=== PATIENT | male | born 1950 | race Caucasian/White ===

== ENCOUNTER 2016-08-06 10:33 | Emergency (ER) | payer MEDICARE, OTHER, BC ==
[2016-08-06 12:00] LABS: AMPHETAMINES LEVEL URINE NEGATIVE (NEGATIVE); BENZODIAZEPINES URINE NEGATIVE (NEGATIVE); COCAINE METABOLITE URINE NEGATIVE (NEGATIVE); CONTROL LINE INT CTR LINE PRESENT; METHADONE URINE NEGATIVE (NEGATIVE); OPIATES URINE NEGATIVE (NEGATIVE); TRICYCLIC ANTIDEPRESS URINE NEGATIVE (NEGATIVE)
[2016-08-06 12:15] LABS: MEAN CORPUSCULAR HEMOGLOBIN 29.2 pg (27.0-33.0); MEAN CORPUSCULAR HGB CONC 32.7 g/dl (32.0-36.5); MEAN CORPUSCULAR VOLUME 89.3 fl (80.0-96.0); RED CELL DISTRIBUTION WIDTH 13.1 % (11.5-14.5); WHITE BLOOD COUNT 11.1 K/mm3 (4.0-10.0)
[2016-08-06 12:20] LABS: ALBUMIN 3.8 GM/DL (3.2-5.2); ALBUMIN/GLOBULIN RATIO 1.27 (1.00-1.93); ALKALINE PHOSPHATASE 78 U/L (45-117); ALT/SGPT 36 U/L (12-78); ANION GAP 7 MEQ/L (8-16); AST/SGOT 22 U/L (15-37); BILIRUBIN,DIRECT 0.2 MG/DL (0.0-0.2); BILIRUBIN,TOTAL 0.7 MG/DL (0.2-1.0); BLOOD UREA NITROGEN 25 MG/DL (7-18); CALCIUM LEVEL 9.3 MG/DL (8.8-10.2); CARBON DIOXIDE LEVEL 30 MEQ/L (21-32); CHLORIDE LEVEL 107 MEQ/L (98-107); CREATININE FOR GFR 1.15 MG/DL (0.70-1.30); GLOMERULAR FILTRATION RATE > 60.0 (>49); GLUCOSE, FASTING 88 MG/DL (80-110); POTASSIUM SERUM 4.5 MEQ/L (3.5-5.1); SODIUM LEVEL 144 MEQ/L (136-145); TOTAL PROTEIN 6.8 GM/DL (6.4-8.2)
--- NOTE | 2016-08-06 13:14 | EDDOCDS ---
Nurse's Notes [facility] Name: Gaurang Charlton Age: 66 yrs Sex: Male : 1950 Arrival Date: 08/06/2016 Time: 10:33 Bed [facility] Private MD: Anjelica Beard PA-C Diagnosis: Problems in relationship with spouse or partner;Hypoglycemia, unspecified Presentation: 08/06 10:46 Presenting complaint: EMS states: pt presented to [facility] in [place] for diabetic dy counseling. had taking his diabetes medications prior to leaving home but had not eaten. pt made statements at [facility] regarding killing and himself. admits to marital problems. FSBS- found to be 42 mg/dl. addressed with orange juice and oral glucose. Adult Sepsis Screening: The patient does not have new or worsening altered mentation. Patient's respiratory rate is less than 22. Systolic blood pressure is greater than 100. Patient has a qSOFA score of 0- Negative Sepsis Screen. Suicide/Homicide risk assessment- The patient admits to and/or has been reported to be having suicidal ideations. The patient admits to and/or has been reported to be having homicidal ideations. Status: Patient is not a attendant self service store or dependent. Transition of care: patient was not received from another setting of care. Care prior to arrival: Saline lock initiated. Glucose check. 79 mg/dl. 10:46 Acuity: IVAN Level 3 dy 10:46 Method Of Arrival: Ambulance dy Triage Assessment: 10:54 General: Appears in no apparent distress. dy Historical: - Allergies: No known drug Allergies; - Home Meds: 1. acetaminophen 500 mg Oral tab 2 tabs every 6 hours as needed 2. furosemide 40 mg Oral tab 1 tab once daily 3. losartan 50 mg oral tab 1 tab once daily 4. insulin, glargine 140 units twice a day 5. insulin, Aspart 60 units 40 unit three times a day 6. docusate sodium 50 mg Oral cap 2 caps once daily 7. senna 8.6 mg oral tab 2 tabs once daily 8. budesonide-formoterol 160-4.5 mcg/actuation inhalation HFAA 2 puffs 2 times per day - PMHx: Diabetes - IDDM: controlled; Hypercholesterolemia; Hypertension; - PSHx: left knee surgery; Hernia repair; Cataract Surgery- Bilateral; - Social history: No barriers to communication noted, The patient speaks fluent Maltese, Speaks appropriately for age, Smoking status: Patient states was never smoker of tobacco. - Family history: Not pertinent. - : The pt / caregiver states he / she is not on anticoagulants. Home medication list is obtained from the patient. - Exposure Risk Screening:: None identified. Screenin:46 Screening information is obtained from the patient. Fall risk: No risks identified. dy Assistance ADL's: requires no assistance with activities of daily living. Abuse/DV Screen: The patient / caregiver reports he/she is: not in a situation that causes fear, pain or injury. Nutritional screening: No deficits noted. Advance Directives: There is no active DNR order. home support is adequate. Assessment: 11:45 General: Appears in no apparent distress, Behavior is appropriate for age, cooperative. dy Pain: Location: right knee and left knee. Neurological: Level of Consciousness is awake, alert, obeys commands, Oriented to person, place, time. Respiratory: Airway is patent Respiratory effort is even, unlabored. Derm: Skin is pink, warm & dry. 12:39 General: Appears in no apparent distress, Behavior is appropriate for age, cooperative. dy Neurological: Level of Consciousness is awake, alert, obeys commands, Oriented to person, place, time. Respiratory: Airway is patent Respiratory effort is even, unlabored. 13:12 General: Appears in no apparent distress, comfortable. Pain: Location: right knee and dy left knee. Vital Signs: 11:03 BP 162 / 72 RA Sitting (auto/lg); Pulse 73; Resp 20; Temp 97.0; Pulse Ox 96% on R/A; bnb Pain 0/10; Vitals: 10:54 Log In Time N/A - ambulance arrival. dy ED Course: 10:34 Patient visited by Ana Obregon, Dampener Operator. lbd 10:34 Patient moved to Waiting lbd 10:35 Anjelica Beard is Private Physician. lbd 10:37 Juan Vora, RN is Primary Nurse. lbd 10:37 Patient moved to [facility] lbd 10:39 Diann Hollingsworth MD is Attending Physician. sd1 10:50 Triage Initiated dy 10:59 Patient visited by Michael Bourgeois Security Aide. pjf 11:03 Patient visited by Polina Osorio PCA. bnb 11:08 Patient visited by Diann Hollingsworth MD. sd1 11:22 Patient visited by Michael Bourgeois Security Aide. pjf 11:25 Pt greeted and oriented to ED. Patient advised of names of staff involved in care, pjf location of call bender, wait times and NPO status. Accompanied by ems, Patient has correct armband on for positive identification. Bed in low position. Call light in reach. Side rails up X 1. Security observing. Property left with pt per Medical Provider, (s.d.). Door closed. Noise minimized. Visitors limited. Report received from rn - psych. triage level #2, ?si, cooperative \T\ this time. The patient / caregiver is instructed regarding the plan of care and ED course. Psych Safety Check: Location: Psych Room. 11:40 Patient visited by Michael Bourgeois Security Aide. pjf 11:47 Patient visited by Juan Vora RN. dy 11:47 Labs drawn. (by ED staff). Sent per order to lab. dy 12:22 Patient visited by Michael Bourgeois Security Aide. pjf 12:40 Patient visited by Juan Vora RN. dy 12:42 Patient visited by Michael Bourgeois Security Aide. pjf 12:42 Anjelica Beard is Referral Physician. sd1 12:42 Referral list, As provided by [facility] is Referral Physician. sd1 13:00 Patient visited by Michael Bourgeois Security Aide. pjf 13:06 [facility] Payment Agreement was scanned into [email or web address] and attached to record. jp5 13:12 No IV's were initiated during this patient's visit. No procedures done that require dy assistance. Order Results: Lab Order: Acetaminophen Level; SPEC'M 08/06/16 11:37 Test: ACETAMINOPHEN LEVEL; Value: < 2.0; Range: 10.0-30.0; Abnormal: Below low normal; Units: UG/ML; Status: F Lab Order: Basic Metabolic Profile; SPEC'M 08/06/16 11:37 Test: GLUCOSE, FASTING; Value: 88; Range: 80-110; Units: MG/DL; Status: F Test: BLOOD UREA NITROGEN; Value: 25; Range: 7-18; Abnormal: Above high normal; Units: MG/DL; Status: F Test: CREATININE FOR GFR; Value: 1.15; Range: 0.70-1.30; Units: MG/DL; Status: F Test: GLOMERULAR FILTRATION RATE; Value: > 60.0; Range: >49; Status: F Test: SODIUM LEVEL; Value: 144; Range: 136-145; Units: MEQ/L; Status: F Test: POTASSIUM SERUM; Value: 4.5; Range: 3.5-5.1; Units: MEQ/L; Status: F Test: CHLORIDE LEVEL; Value: 107; Range: 98-107; Units: MEQ/L; Status: F Test: CARBON DIOXIDE LEVEL; Value: 30; Range: 21-32; Units: MEQ/L; Status: F Test: ANION GAP; Value: 7; Range: 8-16; Abnormal: Below low normal; Units: MEQ/L; Status: F Test: CALCIUM LEVEL; Value: 9.3; Range: 8.8-10.2; Units: MG/DL; Status: F Test Note: ; Units are mL/min/1.73 m2 Chronic Kidney Disease Staging per NKF: Stage I & II GFR >=60 Normal to Mildly Decreased Stage III GFR 30-59 Moderately Decreased Stage IV GFR 15-29 Severely Decreased Stage V GFR <15 Very Little GFR Left ESRD GFR <15 on ROLL CAPPER Lab Order: Complete Blood Count; SPEC'M 08/06/16 11:37 Test: WHITE BLOOD COUNT; Value: 11.1; Range: 4.0-10.0; Abnormal: Above high normal; Units: K/mm3; Status: F Test: RED BLOOD COUNT; Value: 4.97; Range: 4.30-6.10; Units: M/mm3; Status: F Test: HEMOGLOBIN; Value: 14.5; Range: 14.0-18.0; Units: g/dl; Status: F Test: HEMATOCRIT; Value: 44.4; Range: 42.0-52.0; Units: %; Status: F Test: MEAN CORPUSCULAR VOLUME; Value: 89.3; Range: 80.0-96.0; Units: fl; Status: F Test: MEAN CORPUSCULAR HEMOGLOBIN; Value: 29.2; Range: 27.0-33.0; Units: pg; Status: F Test: MEAN CORPUSCULAR HGB CONC; Value: 32.7; Range: 32.0-36.5; Units: g/dl; Status: F Test: RED CELL DISTRIBUTION WIDTH; Value: 13.1; Range: 11.5-14.5; Units: %; Status: F Test: PLATELET COUNT, AUTOMATED; Value: 222; Range: 150-450; Units: k/mm3; Status: F Lab Order: Drug Eval Toxicology ED Only; SPEC'M 08/06/16 11:37 Test: AMPHETAMINES LEVEL URINE; Value: NEGATIVE; Range: NEGATIVE; Status: F Test: BARBITURATES URINE; Value: NEGATIVE; Range: NEGATIVE; Status: F Test: BENZODIAZEPINES URINE; Value: NEGATIVE; Range: NEGATIVE; Status: F Test: CANNABINOIDS URINE; Value: NEGATIVE; Range: NEGATIVE; Status: F Test: COCAINE METABOLITE URINE; Value: NEGATIVE; Range: NEGATIVE; Status: F Test: METHADONE URINE; Value: NEGATIVE; Range: NEGATIVE; Status: F Test: OPIATES URINE; Value: NEGATIVE; Range: NEGATIVE; Status: F Test: TRICYCLIC ANTIDEPRESS URINE; Value: NEGATIVE; Range: NEGATIVE; Status: F Test Note: ; ALL PRESUMPTIVE POSITIVE FINDINGS ARE UNCONFIRMED NORMAL VALUES THRESHOLD IN NG/ML AMPHETAMINES 1000 METHAMPHETAMINES 1000 BARBITURATES 300 BENZODIAZEPINES 300 CANNABINOIDS (THC) 50 COCAINE METABOLITE 300 METHADONE 300 OPIATES 300 PHENCYCLIDINE 25 TRICYCLIC ANTIDEPRESSANTS 1000 RESULTS ARE FOR MEDICAL PURPOSES ONLY. ALL URINE SPECIMENS WILL BE SAVED FOR 3 DAYS. IF CONFIRMATION OF A PRESUMPTIVE POSTIVE SCREEN RESULT IS DESIRED, CALL CHEMISTRY ([phone]) AND REQUEST URINE TO BE SENT TO REFERENCE LAB. FOR A LIST OF CLOSELY RELATED COMPOUNDS PLEASE CALL THE LAB. Lab Order: Ethyl Alcohol (ethanol); SPEC'M 08/06/16 11:37 Test: ETHYL ALCOHOL (ETHANOL); Value: < 0.003; Range: 0.000-0.010; Units: %; Status: F Lab Order: Liver Profile; SPEC'M 08/06/16 11:37 Test: AST/SGOT; Value: 22; Range: 15-37; Units: U/L; Status: F Test: ALT/SGPT; Value: 36; Range: 12-78; Units: U/L; Status: F Test: ALKALINE PHOSPHATASE; Value: 78; Range: 45-117; Units: U/L; Status: F Test: BILIRUBIN,TOTAL; Value: 0.7; Range: 0.2-1.0; Units: MG/DL; Status: F Test: BILIRUBIN,DIRECT; Value: 0.2; Range: 0.0-0.2; Units: MG/DL; Status: F Test: TOTAL PROTEIN; Value: 6.8; Range: 6.4-8.2; Units: GM/DL; Status: F Test: ALBUMIN; Value: 3.8; Range: 3.2-5.2; Units: GM/DL; Status: F Test: ALBUMIN/GLOBULIN RATIO; Value: 1.27; Range: 1.00-1.93; Status: F Lab Order: Salicylate Level; SPEC'M 08/06/16 11:37 Test: SALICYLATE LEVEL; Value: < 1.7; Range: 5.0-30.0; Abnormal: Below low normal; Units: MG/DL; Status: F Lab Order: Thyroid Stimulating Hormone; SPEC'M 08/06/16 11:37 Test: THYROID STIMULATING HORMONE; Value: 2.500; Range: 0.358-3.740; Units: uIU/ML; Status: F Outcome: 12:43 Discharge ordered by Provider. sd1 13:12 Discharge Assessment: patient administered narcotics - no. The following High Risk dy Discharge criteria are identified: Yes, pt seen by PSA. safe discharge with . Discharged to home ambulatory. Condition: stable. Discharge instructions given to patient, Instructed on discharge instructions, follow up and referral plans. Demonstrated understanding of instructions, Pt was receptive of discharge instructions/ teaching. No special radiology studies were completed. 13:14 Patient left the ED. dy Signatures: Diann Hollingsworth MD MD sd1 Ana Obregon, Dampener Operator Unit lbd Michael Bourgeois, Juan Malone, RN RN Efren Grey jp5 Polina Osorio, NAEL UNDERWRITING SUPPORT MANAGER bnb MTDD
--- NOTE | 2016-08-06 13:14 | EDDOCDS ---
Physician Documentation [facility] Name: Gaurang Charlton Age: 66 yrs Sex: Male : 1950 Arrival Date: 08/06/2016 Time: 10:[address] MD: Anjelica Beard PA-C Disposition: 08/06/16 12:43 Discharged to Home/Self Care. Impression: Problems in relationship with spouse or partner, Hypoglycemia, unspecified. - Condition is Stable. - Discharge Instructions: Blood Glucose Monitoring, Adult, Hypoglycemia, Hypoglycemia, Yzof-ic-Bkcg. - Medication Reconciliation, Local Pharmacy Hours form. - Follow up: Anjelica Beard; When: Call to arrange an appointment. Follow up: Referral list, As provided by PFS; When: Call to arrange an appointment. - Problem is an acute exacerbation. - Symptoms are resolved. Historical: - Allergies: No known drug Allergies; - Home Meds: 1. acetaminophen 500 mg Oral tab 2 tabs every 6 hours as needed 2. furosemide 40 mg Oral tab 1 tab once daily 3. losartan 50 mg oral tab 1 tab once daily 4. insulin, glargine 140 units twice a day 5. insulin, Aspart 60 units 40 unit three times a day 6. docusate sodium 50 mg Oral cap 2 caps once daily 7. senna 8.6 mg oral tab 2 tabs once daily 8. budesonide-formoterol 160-4.5 mcg/actuation inhalation HFAA 2 puffs 2 times per day - PMHx: Diabetes - IDDM: controlled; Hypercholesterolemia; Hypertension; - PSHx: left knee surgery; Hernia repair; Cataract Surgery- Bilateral; - Social history: No barriers to communication noted, The patient speaks fluent Qatari, Speaks appropriately for age, Smoking status: Patient states was never smoker of tobacco. - Family history: Not pertinent. - : The pt / caregiver states he / she is not on anticoagulants. Home medication list is obtained from the patient. - Exposure Risk Screening:: None identified. Vital Signs: 08/06 11:03 BP 162 / 72 RA Sitting (auto/lg); Pulse 73; Resp 20; Temp 97.0; Pulse Ox 96% on R/A; bnb Pain 0/10; MDM: 11:33 Consult PFS/PSA/Interior Mechanic ordered. sd1 11:33 Consult PFS/PSA/Interior Mechanic: Patient's case requires discussion with on-call sd1 Psychiatrist ordered. 11:33 PSA/PFS to call Nursing Licensed Esthetician, to enter [place] data on [place] if patient sd1 involuntarily admitted or transferred for SI or HI ordered. 11:33 Confirm accurate psychiatric medication list and times of last dosage ordered. sd1 11:33 Detain Pt Until Medically/PFS Cleared ordered. sd1 11:34 Acetaminophen Level Ordered. EDMS 11:34 Basic Metabolic Profile Ordered. EDMS 11:34 Complete Blood Count Ordered. EDMS 11:34 Drug Eval Toxicology ED Only Ordered. EDMS 11:34 Ethyl Alcohol (ethanol) Ordered. EDMS 11:34 Liver Profile Ordered. EDMS 11:34 Salicylate Level Ordered. EDMS 11:34 Thyroid Stimulating Hormone Ordered. EDMS 12:30 Consult PFS/PSA/Interior Mechanic complete. ca 12:37 Consult PFS/PSA/Interior Mechanic: Patient's case requires discussion with on-call ca Psychiatrist complete. 12:37 PSA/PFS to call Nursing Licensed Esthetician, to enter [place] if patient ca involuntarily admitted or transferred for SI or HI complete. 12:42 Acetaminophen Level Reviewed. sd1 12:42 Basic Metabolic Profile Reviewed. sd1 12:42 Complete Blood Count Reviewed. sd1 12:42 Salicylate Level Reviewed. sd1 12:42 Drug Eval Toxicology ED Only Reviewed. sd1 12:42 Ethyl Alcohol (ethanol) Reviewed. sd1 12:42 Liver Profile Reviewed. sd1 12:42 Thyroid Stimulating Hormone Reviewed. sd1 13:06 [facility] Payment Agreement was scanned into [employer] and attached to record. jp5 13:06 Financial registration complete. jp5 Signatures: Dispatcher [employer] EDMS Diann Hollingsworth MD MD sd1 Elizabeth Cook, PSA PSA ca Juan Vora, RN RN Efren Grey jp5 The chart was reviewed and I authenticate all verbal orders and agree with the evaluation and treatment provided.Attachments: 13:06 [facility] Payment Agreement jp5 MTDD
--- NOTE | 2016-08-08 14:14 | EDDOCDS ---
Physician Documentation [facility] Name: Gaurang Charlton Age: 66 yrs Sex: Male : 1950 Arrival Date: 08/06/2016 Time: 10:[address] MD: Anjelica Beard PA-C Disposition: 08/06/16 12:43 Discharged to Home/Self Care. Impression: Problems in relationship with spouse or partner, Hypoglycemia, unspecified. - Condition is Stable. - Discharge Instructions: Blood Glucose Monitoring, Adult, Hypoglycemia, Hypoglycemia, [id number]. - Medication Reconciliation, Local Pharmacy Hours form. - Follow up: Anjelica Beard; When: Call to arrange an appointment. Follow up: Referral list, As provided by PFS; When: Call to arrange an appointment. - Problem is an acute exacerbation. - Symptoms are resolved. Historical: - Allergies: No known drug Allergies; - Home Meds: 1. acetaminophen 500 mg Oral tab 2 tabs every 6 hours as needed 2. furosemide 40 mg Oral tab 1 tab once daily 3. losartan 50 mg oral tab 1 tab once daily 4. insulin, glargine 140 units twice a day 5. insulin, Aspart 60 units 40 unit three times a day 6. docusate sodium 50 mg Oral cap 2 caps once daily 7. senna 8.6 mg oral tab 2 tabs once daily 8. budesonide-formoterol 160-4.5 mcg/actuation inhalation HFAA 2 puffs 2 times per day - PMHx: Diabetes - IDDM: controlled; Hypercholesterolemia; Hypertension; - PSHx: left knee surgery; Hernia repair; Cataract Surgery- Bilateral; - Social history: No barriers to communication noted, The patient speaks fluent Thai, Speaks appropriately for age, Smoking status: Patient states was never smoker of tobacco. - Family history: Not pertinent. - : The pt / caregiver states he / she is not on anticoagulants. Home medication list is obtained from the patient. - Exposure Risk Screening:: None identified. Vital Signs: 08/06 11:03 BP 162 / 72 RA Sitting (auto/lg); Pulse 73; Resp 20; Temp 97.0; Pulse Ox 96% on R/A; bnb Pain 0/10; MDM: 11:33 Consult PFS/PSA/Technology Development Intern ordered. sd1 11:33 Consult PFS/PSA/Technology Development Intern: Patient's case requires discussion with on-call sd1 Psychiatrist ordered. 11:33 PSA/PFS to call Nursing Tele Marketing Executive, to enter [place] data [place] if patient sd1 involuntarily admitted or transferred for SI or HI ordered. 11:33 Confirm accurate psychiatric medication list and times of last dosage ordered. sd1 11:33 Detain Pt Until Medically/PFS Cleared ordered. sd1 11:34 Acetaminophen Level Ordered. EDMS 11:34 Basic Metabolic Profile Ordered. EDMS 11:34 Complete Blood Count Ordered. EDMS 11:34 Drug Eval Toxicology ED Only Ordered. EDMS 11:34 Ethyl Alcohol (ethanol) Ordered. EDMS 11:34 Liver Profile Ordered. EDMS 11:34 Salicylate Level Ordered. EDMS 11:34 Thyroid Stimulating Hormone Ordered. EDMS 12:30 Consult PFS/PSA/Technology Development Intern complete. ca 12:37 Consult PFS/PSA/Technology Development Intern: Patient's case requires discussion with on-call ca Psychiatrist complete. 12:37 PSA/PFS to call Nursing Tele Marketing Executive, to enter [place] if patient ca involuntarily admitted or transferred for SI or HI complete. 12:42 Acetaminophen Level Reviewed. sd1 12:42 Basic Metabolic Profile Reviewed. sd1 12:42 Complete Blood Count Reviewed. sd1 12:42 Salicylate Level Reviewed. sd1 12:42 Drug Eval Toxicology ED Only Reviewed. sd1 12:42 Ethyl Alcohol (ethanol) Reviewed. sd1 12:42 Liver Profile Reviewed. sd1 12:42 Thyroid Stimulating Hormone Reviewed. sd1 13:06 [facility] Payment Agreement was scanned into [employer] and attached to record. jp5 13:06 Financial registration complete. 5 08/07 14:14 T-Sheet-- Draft Copy was scanned into [employer] and attached to record. gb Signatures: Dispatcher [employer] EDMS Diann Hollingsworth MD MD sd1 Elizabeth Cook, PSA PSA ca Dee Rodriguez, Reg Reg Juan Villafuerte, RN RN Efren Grey jp5 The chart was reviewed and I authenticate all verbal orders and agree with the evaluation and treatment provided.Attachments: 08/06 13:06 [facility] Payment Agreement jp5 08/07 14:14 T-Sheet-- Draft Copy gb Chart Complete MTDD
--- NOTE | 2016-08-08 14:14 | EDDOCDS ---
Physician Documentation [facility] Name: Gaurang Charlton Age: 66 yrs Sex: Male : 1950 Arrival Date: 08/06/2016 Time: 10:[address] MD: Anjelica Beard PA-C Disposition: 08/06/16 12:43 Discharged to Home/Self Care. Impression: Problems in relationship with spouse or partner, Hypoglycemia, unspecified. - Condition is Stable. - Discharge Instructions: Blood Glucose Monitoring, Adult, Hypoglycemia, Hypoglycemia, Wrtu-ud-Nson. - Medication Reconciliation, Local Pharmacy Hours form. - Follow up: Anjelica Beard; When: Call to arrange an appointment. Follow up: Referral list, As provided by PFS; When: Call to arrange an appointment. - Problem is an acute exacerbation. - Symptoms are resolved. Historical: - Allergies: No known drug Allergies; - Home Meds: 1. acetaminophen 500 mg Oral tab 2 tabs every 6 hours as needed 2. furosemide 40 mg Oral tab 1 tab once daily 3. losartan 50 mg oral tab 1 tab once daily 4. insulin, glargine 140 units twice a day 5. insulin, Aspart 60 units 40 unit three times a day 6. docusate sodium 50 mg Oral cap 2 caps once daily 7. senna 8.6 mg oral tab 2 tabs once daily 8. budesonide-formoterol 160-4.5 mcg/actuation inhalation HFAA 2 puffs 2 times per day - PMHx: Diabetes - IDDM: controlled; Hypercholesterolemia; Hypertension; - PSHx: left knee surgery; Hernia repair; Cataract Surgery- Bilateral; - Social history: No barriers to communication noted, The patient speaks fluent Hungarian, Speaks appropriately for age, Smoking status: Patient states was never smoker of tobacco. - Family history: Not pertinent. - : The pt / caregiver states he / she is not on anticoagulants. Home medication list is obtained from the patient. - Exposure Risk Screening:: None identified. Vital Signs: 08/06 11:03 BP 162 / 72 RA Sitting (auto/lg); Pulse 73; Resp 20; Temp 97.0; Pulse Ox 96% on R/A; bnb Pain 0/10; MDM: 11:33 Consult PFS/PSA/Filter Washer And Presser ordered. sd1 11:33 Consult PFS/PSA/Filter Washer And Presser: Patient's case requires discussion with on-call sd1 Psychiatrist ordered. 11:33 PSA/PFS to call Nursing Middleware Solutions Architect, to enter [place] if patient sd1 involuntarily admitted or transferred for SI or HI ordered. 11:33 Confirm accurate psychiatric medication list and times of last dosage ordered. sd1 11:33 Detain Pt Until Medically/PFS Cleared ordered. sd1 11:34 Acetaminophen Level Ordered. EDMS 11:34 Basic Metabolic Profile Ordered. EDMS 11:34 Complete Blood Count Ordered. EDMS 11:34 Drug Eval Toxicology ED Only Ordered. EDMS 11:34 Ethyl Alcohol (ethanol) Ordered. EDMS 11:34 Liver Profile Ordered. EDMS 11:34 Salicylate Level Ordered. EDMS 11:34 Thyroid Stimulating Hormone Ordered. EDMS 12:30 Consult PFS/PSA/Filter Washer And Presser complete. ca 12:37 Consult PFS/PSA/Filter Washer And Presser: Patient's case requires discussion with on-call ca Psychiatrist complete. 12:37 PSA/PFS to call Nursing Middleware Solutions Architect, to [place] if patient ca involuntarily admitted or transferred for SI or HI complete. 12:42 Acetaminophen Level Reviewed. sd1 12:42 Basic Metabolic Profile Reviewed. sd1 12:42 Complete Blood Count Reviewed. sd1 12:42 Salicylate Level Reviewed. sd1 12:42 Drug Eval Toxicology ED Only Reviewed. sd1 12:42 Ethyl Alcohol (ethanol) Reviewed. sd1 12:42 Liver Profile Reviewed. sd1 12:42 Thyroid Stimulating Hormone Reviewed. sd1 13:06 [facility] Payment Agreement was scanned into [employer] and attached to record. jp5 13:06 Financial registration complete. 5 08/07 14:14 T-Sheet-- Draft Copy was scanned into [employer] and attached to record. gb Signatures: Dispatcher [employer] EDMS Diann Hollingsworth MD MD sd1 Elizabeth Cook, PSA PSA ca Dee Rodriguez, Reg Reg Juan Villafuerte, RN RN Efren Grey jp5 The chart was reviewed and I authenticate all verbal orders and agree with the evaluation and treatment provided.Attachments: 08/06 13:06 [facility] [place] Agreement jp5 08/07 14:14 T-Sheet-- Draft Copy gb Chart Complete MTDD
--- NOTE | 2016-08-08 14:14 | EDDOCDS ---
[facility] Name: Gaurang Charlton Age: 66 yrs Sex: Male : 1950 Arrival Date: 08/06/2016 Time: 10:33 Bed [facility] Private MD: Anjelica Beard PA-C Diagnosis: Problems in relationship with spouse or partner;Hypoglycemia, unspecified Presentation: 08/06 10:46 Presenting complaint: EMS states: pt presented to [place] [facility] [place] for diabetic dy counseling. had taking his diabetes medications prior to leaving home but had not eaten. pt made statements at [place] regarding killing and himself. admits to marital problems. FSBS- found to be 42 mg/dl. addressed with orange juice and oral glucose. Adult Sepsis Screening: The patient does not have new or worsening altered mentation. Patient's respiratory rate is less than 22. Systolic blood pressure is greater than 100. Patient has a qSOFA score of 0- Negative Sepsis Screen. Suicide/Homicide risk assessment- The patient admits to and/or has been reported to be having suicidal ideations. The patient admits to and/or has been reported to be having homicidal ideations. Status: Patient is not a lubrication servicer or dependent. Transition of care: patient was not received from another setting of care. Care prior to arrival: Saline lock initiated. Glucose check. 79 mg/dl. 10:46 Acuity: IVAN Level 3 dy 10:46 Method Of Arrival: Ambulance dy Triage Assessment: 10:54 General: Appears in no apparent distress. dy Historical: - Allergies: No known drug Allergies; - Home Meds: 1. acetaminophen 500 mg Oral tab 2 tabs every 6 hours as needed 2. furosemide 40 mg Oral tab 1 tab once daily 3. losartan 50 mg oral tab 1 tab once daily 4. insulin, glargine 140 units twice a day 5. insulin, Aspart 60 units 40 unit three times a day 6. docusate sodium 50 mg Oral cap 2 caps once daily 7. senna 8.6 mg oral tab 2 tabs once daily 8. budesonide-formoterol 160-4.5 mcg/actuation inhalation HFAA 2 puffs 2 times per day - PMHx: Diabetes - IDDM: controlled; Hypercholesterolemia; Hypertension; - PSHx: left knee surgery; Hernia repair; Cataract Surgery- Bilateral; - Social history: No barriers to communication noted, The patient speaks fluent Italian, Speaks appropriately for age, Smoking status: Patient states was never smoker of tobacco. - Family history: Not pertinent. - : The pt / caregiver states he / she is not on anticoagulants. Home medication list is obtained from the patient. - Exposure Risk Screening:: None identified. Screenin:46 Screening information is obtained from the patient. Fall risk: No risks identified. dy Assistance ADL's: requires no assistance with activities of daily living. Abuse/DV Screen: The patient / caregiver reports he/she is: not in a situation that causes fear, pain or injury. Nutritional screening: No deficits noted. Advance Directives: There is no active DNR order. home support is adequate. Assessment: 11:45 General: Appears in no apparent distress, Behavior is appropriate for age, cooperative. dy Pain: Location: right knee and left knee. Neurological: Level of Consciousness is awake, alert, obeys commands, Oriented to person, place, time. Respiratory: Airway is patent Respiratory effort is even, unlabored. Derm: Skin is pink, warm & dry. 12:39 General: Appears in no apparent distress, Behavior is appropriate for age, cooperative. dy Neurological: Level of Consciousness is awake, alert, obeys commands, Oriented to person, place, time. Respiratory: Airway is patent Respiratory effort is even, unlabored. 13:12 General: Appears in no apparent distress, comfortable. Pain: Location: right knee and dy left knee. Mental Health Eval: 12:48 Mental health consult is initiated at 12:48. Status: . [facility] Behavioral pr Health: The patient is not an established patient of [facility] Behavioral Health. Referral Information: Evaluation referral is generated by [place] clinic for extremely low blood sugar. The patient was referred for evaluation because Pt seen at [place] clinic today. Had low blood sugar and talking about marital discord. Subjective: The patients chief complaint is Pt firmly denies SI or HI. There has been some ongoing marital problems the couple has been trying to work out. Pt had attack of severe low BS this morning due to taking his medications but not eating anything. While at the clinic pt reportedly made statements about being upset with . Pt denies any thoughts or intent to harm or self. Delusions are denied. Patient's mood is appropriate. Hallucinations are denied. Pt is a [place] with multiple health problems. He is seen regularly at both the [place] in [place] and in [place] where his diabetes is treated. Denies psych hx. Mental Health history:. 13:17 Mental Health history: no relevant mental health problems or treatments. Mental Health ca Admissions: None. Current Outpatient Mental Health Services: None. Current living environment is Family / Home Support: Lives at home with (second marriage). Has supportive children. There is some discord between pt and , however they have been going to marriage counseling sporadically and are trying to work out their differences. Patient presents to Emergency Department with the following symptoms within the past 2 weeks: marital problem. Substance abuse: Pt denies. Mental status exam: Patients appearance is appropriate, Patient's behavior is cooperative, Speech is normal. Affect is appropriate. Mood is appropriate. Hallucinations are denied. Appetite is normal. Memory is good. Energy level is tires easily. Content of thought is normal. Thought process is intact. Cognitive level is oriented to person, place, time and situation Patient's insight is good. Judgement is fair. Rapport with interviewer is good. Suicidal Ideation is denied. Homicidal ideation is denied. Disposition: Medically cleared for disposition by Diann Hollingsworth MD Psychiatric Consult is deferred per ED physician, Dr Manuel. DSM-V Differential Diagnosis: Adjustment Disorder (F43.2) unspecified (F43.20). Narrative: Pt is discharged to home with his . Follow-up with [place] clinic and continued counseling is highly encouraged. Pt is pleasant, cooperative. Continues to CFS. is also pleasant, states she will take pt to fiber picker his vehicle at the clinic and then they will return home. Vital Signs: 11:03 BP 162 / 72 RA Sitting (auto/lg); Pulse 73; Resp 20; Temp 97.0; Pulse Ox 96% on R/A; bnb Pain 0/10; Vitals: 10:54 Log In Time N/A - ambulance arrival. dy ED Course: 10:34 Patient visited by Ana Obregon, Seo Expert. lbd 10:34 Patient moved to [facility] lbd 10:35 Anjelica Beard is Private Physician. lbd 10:37 Juan Vora, RN is Primary Nurse. lbd 10:37 Patient moved to [facility] lbd 10:39 Diann Hollingsworth MD is Attending Physician. sd1 10:50 Triage Initiated dy 10:59 Patient visited by Michael Bourgeois Security Aide. pjf 11:03 Patient visited by Polina Osorio PCA. bnb 11:08 Patient visited by Diann Hollingsworth MD. sd1 11:22 Patient visited by Michael Bourgeois Security Aide. pjf 11:25 Pt greeted and oriented to ED. Patient advised of names of staff involved in care, pjf location of call bender, wait times and NPO status. Accompanied by ems, Patient has correct armband on for positive identification. Bed in low position. Call light in reach. Side rails up X 1. Security observing. Property left with pt per Medical Provider, (s.d.). Door closed. Noise minimized. Visitors limited. Report received from rn - psych. triage level #2, ?si, cooperative \T\ this time. The patient / caregiver is instructed regarding the plan of care and ED course. Psych Safety Check: Location: Psych Room. 11:40 Patient visited by Michael Bourgeois Security Aide. pjf 11:47 Patient visited by Juan Vora RN. dy 11:47 Labs drawn. (by ED staff). Sent per order to lab. dy 12:22 Patient visited by Michael Bourgeois Security Aide. pjf 12:40 Patient visited by Juan Vora RN. dy 12:42 Patient visited by Michael Bourgeois Security Aide. pjf 12:42 Anjelica Beard is Referral Physician. sd1 12:42 Referral list, As provided by [facility] is Referral Physician. sd1 13:00 Patient visited by Michael Bourgeois Security Aide. pjf 13:06 [facility] Payment Agreement was scanned into [employer] and attached to record. jp5 13:12 No IV's were initiated during this patient's visit. No procedures done that require dy assistance. 08/07 14:14 T-Sheet-- Draft Copy was scanned into [employer] and attached to record. gb Order Results: Lab Order: Acetaminophen Level; SPEC'M 08/06/16 11:37 Test: ACETAMINOPHEN LEVEL; Value: < 2.0; Range: 10.0-30.0; Abnormal: Below low normal; Units: UG/ML; Status: F Lab Order: Basic Metabolic Profile; [facility]08/06/16 11:37 Test: GLUCOSE, FASTING; Value: 88; Range: 80-110; Units: MG/DL; Status: F Test: BLOOD UREA NITROGEN; Value: 25; Range: 7-18; Abnormal: Above high normal; Units: MG/DL; Status: F Test: CREATININE FOR GFR; Value: 1.15; Range: 0.70-1.30; Units: MG/DL; Status: F Test: GLOMERULAR FILTRATION RATE; Value: > 60.0; Range: >49; Status: F Test: SODIUM LEVEL; Value: 144; Range: 136-145; Units: MEQ/L; Status: F Test: POTASSIUM SERUM; Value: 4.5; Range: 3.5-5.1; Units: MEQ/L; Status: F Test: CHLORIDE LEVEL; Value: 107; Range: 98-107; Units: MEQ/L; Status: F Test: CARBON DIOXIDE LEVEL; Value: 30; Range: 21-32; Units: MEQ/L; Status: F Test: ANION GAP; Value: 7; Range: 8-16; Abnormal: Below low normal; Units: MEQ/L; Status: F Test: CALCIUM LEVEL; Value: 9.3; Range: 8.8-10.2; Units: MG/DL; Status: F Test Note: ; Units are mL/min/1.73 m2 Chronic Kidney Disease Staging per NKF: Stage I & II GFR >=60 Normal to Mildly Decreased Stage III GFR 30-59 Moderately Decreased Stage IV GFR 15-29 Severely Decreased Stage V GFR <15 Very Little GFR Left ESRD GFR <15 on GROUNDS/MAINTENANCE SPECIALIST Lab Order: Complete Blood Count; [facility]08/06/16 11:37 Test: WHITE BLOOD COUNT; Value: 11.1; Range: 4.0-10.0; Abnormal: Above high normal; Units: K/mm3; Status: F Test: RED BLOOD COUNT; Value: 4.97; Range: 4.30-6.10; Units: M/mm3; Status: F Test: HEMOGLOBIN; Value: 14.5; Range: 14.0-18.0; Units: g/dl; Status: F Test: HEMATOCRIT; Value: 44.4; Range: 42.0-52.0; Units: %; Status: F Test: MEAN CORPUSCULAR VOLUME; Value: 89.3; Range: 80.0-96.0; Units: fl; Status: F Test: MEAN CORPUSCULAR HEMOGLOBIN; Value: 29.2; Range: 27.0-33.0; Units: pg; Status: F Test: MEAN CORPUSCULAR HGB CONC; Value: 32.7; Range: 32.0-36.5; Units: g/dl; Status: F Test: RED CELL DISTRIBUTION WIDTH; Value: 13.1; Range: 11.5-14.5; Units: %; Status: F Test: PLATELET COUNT, AUTOMATED; Value: 222; Range: 150-450; Units: k/mm3; Status: F Lab Order: Drug Eval Toxicology ED Only; SPEC'M 08/06/16 11:37 Test: AMPHETAMINES LEVEL URINE; Value: NEGATIVE; Range: NEGATIVE; Status: F Test: BARBITURATES URINE; Value: NEGATIVE; Range: NEGATIVE; Status: F Test: BENZODIAZEPINES URINE; Value: NEGATIVE; Range: NEGATIVE; Status: F Test: CANNABINOIDS URINE; Value: NEGATIVE; Range: NEGATIVE; Status: F Test: COCAINE METABOLITE URINE; Value: NEGATIVE; Range: NEGATIVE; Status: F Test: METHADONE URINE; Value: NEGATIVE; Range: NEGATIVE; Status: F Test: OPIATES URINE; Value: NEGATIVE; Range: NEGATIVE; Status: F Test: TRICYCLIC ANTIDEPRESS URINE; Value: NEGATIVE; Range: NEGATIVE; Status: F Test Note: ; ALL PRESUMPTIVE POSITIVE FINDINGS ARE UNCONFIRMED NORMAL VALUES THRESHOLD IN NG/ML AMPHETAMINES 1000 METHAMPHETAMINES 1000 BARBITURATES 300 BENZODIAZEPINES 300 CANNABINOIDS (THC) 50 COCAINE METABOLITE 300 METHADONE 300 OPIATES 300 PHENCYCLIDINE 25 TRICYCLIC ANTIDEPRESSANTS 1000 RESULTS ARE FOR MEDICAL PURPOSES ONLY. ALL URINE SPECIMENS WILL BE SAVED FOR 3 DAYS. IF CONFIRMATION OF A PRESUMPTIVE POSTIVE SCREEN RESULT IS DESIRED, CALL CHEMISTRY ([phone]) AND REQUEST URINE TO BE SENT TO REFERENCE LAB. FOR A LIST OF CLOSELY RELATED COMPOUNDS PLEASE CALL THE LAB. Lab Order: Ethyl Alcohol (ethanol); SPEC'M 08/06/16 11:37 Test: ETHYL ALCOHOL (ETHANOL); Value: < 0.003; Range: 0.000-0.010; Units: %; Status: F Lab Order: Liver Profile; SPEC'M 08/06/16 11:37 Test: AST/SGOT; Value: 22; Range: 15-37; Units: U/L; Status: F Test: ALT/SGPT; Value: 36; Range: 12-78; Units: U/L; Status: F Test: ALKALINE PHOSPHATASE; Value: 78; Range: 45-117; Units: U/L; Status: F Test: BILIRUBIN,TOTAL; Value: 0.7; Range: 0.2-1.0; Units: MG/DL; Status: F Test: BILIRUBIN,DIRECT; Value: 0.2; Range: 0.0-0.2; Units: MG/DL; Status: F Test: TOTAL PROTEIN; Value: 6.8; Range: 6.4-8.2; Units: GM/DL; Status: F Test: ALBUMIN; Value: 3.8; Range: 3.2-5.2; Units: GM/DL; Status: F Test: ALBUMIN/GLOBULIN RATIO; Value: 1.27; Range: 1.00-1.93; Status: F Lab Order: Salicylate Level; SPEC'M 08/06/16 11:37 Test: SALICYLATE LEVEL; Value: < 1.7; Range: 5.0-30.0; Abnormal: Below low normal; Units: MG/DL; Status: F Lab Order: Thyroid Stimulating Hormone; SPEC'M 08/06/16 11:37 Test: THYROID STIMULATING HORMONE; Value: 2.500; Range: 0.358-3.740; Units: uIU/ML; Status: F Outcome: 08/06 12:43 Discharge ordered by Provider. sd1 13:12 Discharge Assessment: patient administered narcotics - no. The following High Risk dy Discharge criteria are identified: Yes, pt seen by [facility]. safe discharge with . Discharged to home ambulatory. Condition: stable. Discharge instructions given to patient, Instructed on discharge instructions, follow up and referral plans. Demonstrated understanding of instructions, Pt was receptive of discharge instructions/ teaching. No special radiology studies were completed. 13:14 Patient left the ED. dy Signatures: Diann Hollingsworth MD MD sd1 Ana Obregon, Seo Expert Unit lbd Elizabeth Cook, ADRIENNE PSA Dee Duran, Reg Reg gb Michael Bourgeois, Security Roxannee Juan Esquivel, RN RN Efren Grey jp5 Polina Osorio, CLOTHES MODEL CLOTHES MODEL bnb Chart Complete MTDD
== END 2016-08-06 13:14 | disposition home or self-care (01) ==
LOC: M ED 10:33
DX: E11.649 Type 2 diabetes mellitus with hypoglycemia without coma (principal); Z63.0 Problems in relationship with spouse or partner; E78.00 Pure hypercholesterolemia, unspecified; I10 Essential (primary) hypertension; Z79.4 Long term (current) use of insulin; Z79.899 Other long term (current) drug therapy
CPT/HCPCS: 36415; 80048; 80076; 80306; 84443; 85027; 99284; G0480

== ENCOUNTER 2016-11-30 07:39 | Emergency (ER) | payer MEDICARE, OTHER, BC ==
[~2016-11-30] VITALS: Ht 180.3 cm; Wt 147.0 kg
[2016-11-30] MEDS ORDERED: ASPI1TAB PO (07:47)
[2016-11-30] MEDS ORDERED: CIPR500T89 PO (09:08)
[2016-11-30] MEDS ORDERED: PYRI200T5 PO (09:08)
[2016-11-30] MEDS ORDERED: PHENAZOPYRIDINE 100 MG TAB PO ONE (09:15)
[2016-11-30] MEDS ORDERED: CIPROFLOXACIN 500 MG TAB PO ONE (09:15)
[2016-11-30 09:24] VITALS: BP 152/56
== END 2016-11-30 09:26 | disposition home or self-care (01) ==
LOC: M ED 08:50
DX: N30.00 Acute cystitis without hematuria (principal); E10.9 Type 1 diabetes mellitus without complications; I10 Essential (primary) hypertension; Z79.1 Long term (current) use of non-steroidal anti-inflammatories (NSAID); Z79.82 Long term (current) use of aspirin; E78.70 Disorder of bile acid and cholesterol metabolism, unspecified

== ENCOUNTER 2017-06-17 12:42 | Emergency (ER) | payer MEDICARE, OTHER, BC ==
[~2017-06-17] VITALS: Ht 180.3 cm; Wt 152.8 kg
[~2017-06-17 12:42] MED LIST: ASPI1TAB PO; CIPR-249 PO; PYRI1TAB5 PO
[2017-06-17] MEDS ORDERED: LASI40TA PO (12:55)
[2017-06-17] MEDS ORDERED: INSULADS INJ (12:55)
[2017-06-17] MEDS ORDERED: SYMB80INH (12:55)
[2017-06-17] MEDS ORDERED: COLA100C5 PO (12:55)
[2017-06-17] MEDS ORDERED: LOSA50TA20 PO (12:55)
[2017-06-17] MEDS ORDERED: COMBAER6 (12:55)
[2017-06-17] MEDS ORDERED: PIOG45TA4 PO (12:55)
[2017-06-17] MEDS ORDERED: ATOR80TA59 PO (12:55)
[2017-06-17] MEDS ORDERED: NOVOINJ3 SC (12:55)
[2017-06-17 15:25] LABS: BASO # 0.1 10^3/uL (0.0-0.2); BASO % 0.5 % (0.0-1.0); EOS # 0.3 10^3/uL (0.0-0.50); EOS % 2.1 % (0.0-3.0); IMMATURE GRANULOCYTE % 0.5 % (0-0); LYMPH # 3.1 10^3/uL (1.5-4.5); LYMPH % 22.1 % (24.0-44.0); MEAN CORPUSCULAR HEMOGLOBIN 28.7 pg (27.0-33.0); MEAN CORPUSCULAR HGB CONC 33.2 g/dl (32.0-36.5); MEAN CORPUSCULAR VOLUME 86.4 fl (80.0-96.0); MONO % 7.3 % (0.0-5.0); NEUTROPHILS # 9.4 10^3/uL (1.8-7.7); NEUTROPHILS % 67.5 % (36.0-66.0); PLATELET COUNT, AUTOMATED 324 10^3/uL (150-450); RED CELL DISTRIBUTION WIDTH 13.6 % (11.5-14.5); WHITE BLOOD COUNT 13.9 10^3/uL (4.0-10.0)
[2017-06-17 15:48] LABS: ALBUMIN 3.4 GM/DL (3.2-5.2); ALBUMIN/GLOBULIN RATIO 0.85 (1.00-1.93); ALKALINE PHOSPHATASE 104 U/L (45-117); ALT/SGPT 47 U/L (12-78); ANION GAP 8 MEQ/L (8-16); AST/SGOT 43 U/L (7-37); BILIRUBIN,TOTAL 0.8 MG/DL (0.2-1.0); BLOOD UREA NITROGEN 15 MG/DL (7-18); CALCIUM LEVEL 9.1 MG/DL (8.8-10.2); CARBON DIOXIDE LEVEL 27 MEQ/L (21-32); CHLORIDE LEVEL 107 MEQ/L (98-107); CREATININE FOR GFR 1.09 MG/DL (0.70-1.30); GLOMERULAR FILTRATION RATE > 60.0 (>49); GLUCOSE, FASTING 71 MG/DL (80-110); SODIUM LEVEL 142 MEQ/L (136-145); TOTAL PROTEIN 7.4 GM/DL (6.4-8.2)
[2017-06-17] MEDS ORDERED: CEFD1CAP8 PO (17:04)
[2017-06-17] MEDS ORDERED: FLON1SPR (17:04)
[2017-06-17] MEDS ORDERED: COMP1MIS3 XX (17:06)
[2017-06-17] MEDS ORDERED: ALBU83IN INH (17:07)
[2017-06-17] MEDS ORDERED: PRED20TA PO (17:07)
[2017-06-17 17:21] VITALS: BP 165/87
--- NOTE | 2017-06-17 18:43 | ECGEPIP ---
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 Order Number: [id number] Reading MD: Diann Hollingsworth Measurements Intervals [place] Rate: 87 P: 52 ME: 169 QRS: 86 QRSD: 93 T: 31 QT: 354 QTc: 428 Interpretive Statements SINUS RHYTHM WITH OCCASIONAL VENTRICULAR PREMATURE COMPLEXES NSTTW ABNORMALITY Electronically Signed On 06-17-2017 18:43:37 EST by Diann Hollingsworth
--- NOTE | 2017-06-18 15:19 | REP ---
CHEST, TWO VIEWS: Two views of the chest are performed. COMPARISON: 01/11/2016 as well as other prior exams. There is mild cardiomegaly. There is no acute infiltrate. The mediastinal silhouette is unchanged. There are degenerative changes of the spine. IMPRESSION: Mild cardiomegaly. No acute pulmonary disease. Signed by Jeffery Hector MD 06/19/2017 08:23 P
== END 2017-06-17 17:23 | disposition home or self-care (01) ==
LOC: M ED 12:42
DX: J01.90 Acute sinusitis, unspecified (principal); R06.02 Shortness of breath; J44.9 Chronic obstructive pulmonary disease, unspecified; I11.9 Hypertensive heart disease without heart failure; Z87.891 Personal history of nicotine dependence; Z79.899 Other long term (current) drug therapy; Z79.82 Long term (current) use of aspirin; Z79.51 Long term (current) use of inhaled steroids; Z79.4 Long term (current) use of insulin

== ENCOUNTER 2018-07-29 15:40 | Emergency (ER) | payer MEDICARE, OTHER, BC ==
[~2018-07-29] VITALS: Ht 180.3 cm; Wt 166.4 kg
[2018-07-29 15:40] VITALS: BP 175/72
[~2018-07-29 15:40] MED LIST changes: -DOXY100C37 PO; -GABA-845 PO; -MUCI600T37 PO
[2018-07-29] MEDS ORDERED: GABA-845 PO (15:55)
[2018-07-29] MEDS ORDERED: DOXY100C37 PO (16:52)
[2018-07-29] MEDS ORDERED: MUCI600T37 PO (16:52)
== END 2018-07-29 17:07 | disposition home or self-care (01) ==
LOC: M ED 15:40
DX: J34.89 Other specified disorders of nose and nasal sinuses (principal); J44.9 Chronic obstructive pulmonary disease, unspecified; I10 Essential (primary) hypertension; E11.9 Type 2 diabetes mellitus without complications; G47.33 Obstructive sleep apnea (adult) (pediatric); E66.01 Morbid (severe) obesity due to excess calories; N40.0 Benign prostatic hyperplasia without lower urinary tract symptoms; Z79.899 Other long term (current) drug therapy; Z79.82 Long term (current) use of aspirin; Z79.4 Long term (current) use of insulin
CPT/HCPCS: 71046; 93005; 99283; G0463

== ENCOUNTER → 2018-07-29 | Outpatient (CLI) | payer MEDICARE, OTHER, BC ==
[~2018-07-29] MED LIST changes: +ALBU83IN INH; +ATOR80TA59 PO; +CEFD1CAP8 PO; +COLA100C5 PO; +COMBAER6; +COMP1MIS3 XX; +DOXY100C37 PO; +FLON1SPR; +GABA-845 PO; +INSULADS INJ; +LASI40TA9 PO; +LOSA50TA88 PO; +MUCI600T37 PO; +NOVOINJ3 SC; +PIOG1TAB55 PO; +PRED20TA PO; +SYMB80INH
--- NOTE | 2018-07-29 14:39 | REP ---
Clinical: Acute shortness of breath . Comparison: 06/17/2017 . Technique: PA and lateral. Findings: The mediastinum is stable. Cardiomegaly again noted. The lung paulino are clear and without acute consolidation, effusion, or pneumothorax. Impression: Cardiomegaly. No obvious acute process. Consider chest CT if the patient remains symptomatic. Electronically Signed by Jam Lopez MD 07/29/2018 02:30 P
== END ==
LOC: M LRY 13:43
PROVIDERS: ATTEND Nurse Practitioner Family
DX: I51.7 Cardiomegaly (principal); R06.02 Shortness of breath

== ENCOUNTER 2018-11-03 18:13 | Inpatient (IN) | payer MEDICARE, OTHER, BC ==
[~2018-11-03] VITALS: Ht 180.3 cm; Wt 168.2 kg
[~2018-11-03 18:13] MED LIST changes: -ASPI1TAB PO; +ASPI81TA26 PO; +DOXY100C37 PO; +GABA-845 PO; +MUCI600T37 PO
[2018-11-03] MEDS ORDERED: METOCLOPRAMIDE 10 MG TAB PO ONE (20:15)
[2018-11-03 21:01] LABS: BASO # 0.1 10^3/uL (0.0-0.2); BASO % 0.4 % (0.0-1.0); EOS # 0.2 10^3/uL (0.0-0.50); HEMATOCRIT 41.3 % (42.0-52.0); HEMOGLOBIN 13.1 g/dl (13.5-17.5); LYMPH # 2.5 10^3/uL (1.5-4.5); LYMPH % 22.3 % (24.0-44.0); MEAN CORPUSCULAR HEMOGLOBIN 29.2 pg (27.0-33.0); MEAN CORPUSCULAR HGB CONC 31.7 g/dl (32.0-36.5); MEAN CORPUSCULAR VOLUME 92.2 fl (80.0-96.0); MONO % 8.8 % (0.0-5.0); NEUTROPHILS # 7.5 10^3/uL (1.8-7.7); NEUTROPHILS % 66.1 % (36.0-66.0); PLATELET COUNT, AUTOMATED 219 10^3/uL (150-450); RED BLOOD COUNT 4.48 10^6/uL (4.30-6.10); WHITE BLOOD COUNT 11.3 10^3/uL (4.0-10.0)
[2018-11-03] MEDS: GASTROGRAFIN SOLUTION 30ML PO SCH ×2 (21:28→21:55)
[2018-11-03] MEDS ORDERED: MORPHINE 4 MG/ML 1ML VIAL/SYRINGE (J2270) IV ONE (21:45)
[2018-11-03] MEDS ORDERED: ISOVUE-370 76% 100ML VIAL (Q9967) As Ordered ONE (23:08)
--- NOTE | 2018-11-04 00:27 | REPVR ---
EXAM: CT Abdomen and Pelvis With Contrast EXAM DATE/TIME: 11/03/2018 8:50 PM CLINICAL HISTORY: 68 years old, male; Abdominal pain; Generalized; Additional info: Abdominal distention; ? Ileus vs sbo TECHNIQUE: Imaging protocol: Axial computed tomography images of the abdomen and pelvis with intravenous contrast. Coronal and sagittal reformatted images were created and reviewed. Radiation optimization: All CT scans at this facility use at least one of these dose optimization techniques: automated exposure control; mA and/or kV adjustment per patient size (includes targeted exams where dose is matched to clinical indication); or iterative reconstruction. Contrast material: ISO; Contrast volume: 100 ml; Contrast route: AC; COMPARISON: CR Abdomen,Flat Plate KUB 11/03/2018 7:59 PM FINDINGS: ABDOMEN: Liver: Enlarged liver with diffuse fatty infiltration. Gallbladder and bile ducts: distended gallbladder with multiple tiny gallstones. Pancreas: Normal. No ductal dilation. Spleen: Normal. No splenomegaly. Adrenals: Normal. No mass. Kidneys and ureters: Normal. No hydronephrosis. Stomach and bowel: Moderate fecal loading of the colon. Mildly dilated proximal and mid small bowel loops measuring up to 4 cm with decompressed distal small bowel loops. Transition point is seen in the right lower quadrant (series 201 image 90, series 202 image 47). Findings all concerning for early small bowel obstruction. Appendix: Normal appendix. PELVIS: Bladder: Unremarkable as visualized. Reproductive: Unremarkable as visualized. ABDOMEN and PELVIS: Intraperitoneal space: Normal. No free air. No significant fluid collection. Bones/joints: Diffuse demineralization of the bones with degenerative changes. Soft tissues: Small fat-containing right inguinal hernia. Vasculature: Atherosclerosis. Lymph nodes: Normal. No enlarged lymph nodes. IMPRESSION: Moderate fecal loading of the colon. Mildly dilated proximal and mid small bowel loops measuring up to 4 cm with decompressed distal small bowel loops. Transition point is seen in the right lower quadrant (series 201 image 90, series 202 image 47). Findings all concerning for early small bowel obstruction. Electronically signed by: Sully Mejia On 11/04/2018 00:26:46 AM
[2018-11-04] MEDS ORDERED: NOVOINJ3 SC (02:19)
[2018-11-04] MEDS ORDERED: STIO1AER INH (02:19)
[2018-11-04] MEDS ORDERED: PROAAER10 INH (02:19)
[2018-11-04] MEDS ORDERED: BUDE32SU6 (02:19)
[2018-11-04] MEDS ORDERED: ALBU83IN INH (02:19)
[2018-11-04] MEDS ORDERED: THER1GEL OU (02:19)
[2018-11-04] MEDS ORDERED: TROS20TA3 PO (02:19)
[2018-11-04] MEDS ORDERED: ASPI-161 PO (02:19)
[2018-11-04] MEDS ORDERED: FLOM0.4C39 PO (02:19)
[2018-11-04] MEDS ORDERED: SIME80TA PO (02:19)
[2018-11-04] MEDS ORDERED: ROSU40TA3 PO (02:19)
[2018-11-04] MEDS ORDERED: GABA-845 PO (02:19)
[2018-11-04] MEDS ORDERED: REFR0.5D8 OU (02:19)
[2018-11-04] MEDS ORDERED: METF500T4 PO (02:20)
[2018-11-04] MEDS ORDERED: TRES100I SC (02:20)
[2018-11-04] MEDS ORDERED: TRUL0.5I SC (02:34)
[2018-11-04] MEDS ORDERED: NS 1,000 ML IV SCH (02:45)
[2018-11-04] MEDS ORDERED: BISACODYL 10 MG SUPP PR ONE (03:15)
[2018-11-04] MEDS ORDERED: GLUCAGON FOR INJ 1 MG VIAL (J1610) SC PRN (03:30)
[2018-11-04] MEDS ORDERED: GLUCOSE 4 GM CHEW TABLET PO PRN (03:30)
[2018-11-04] MEDS ORDERED: ALBUTEROL 90 MCG/ACT 8GM HFA INHALER INH PRN (03:30)
[2018-11-04] MEDS ORDERED: DEXTROSE 50% 50 ML SYRINGE IV PRN (03:30)
[2018-11-04] MEDS: D5W/LR 1,000 ML IV SCH ×2 (04:30→17:24)
[2018-11-04 04:41] LABS: ALBUMIN 3.5 GM/DL (3.2-5.2); BILIRUBIN,TOTAL 0.9 MG/DL (0.2-1.0); CALCIUM LEVEL 8.7 MG/DL (8.8-10.2); CREATININE FOR GFR 1.27 MG/DL (0.70-1.30); GLOMERULAR FILTRATION RATE 59.7 (>42); MAGNESIUM LEVEL 2.2 MG/DL (1.8-2.4); PHOSPHORUS LEVEL 3.4 MG/DL (2.5-4.9); POTASSIUM SERUM 4.4 MEQ/L (3.5-5.1); TOTAL PROTEIN 7.3 GM/DL (6.4-8.2)
[2018-11-04 04:46] LABS: INR 1.04; PROTHROMBIN TIME 13.7 SECONDS (12.1-14.4)
[2018-11-04 04:47] LABS: PARTIAL THROMBOPLASTIN TIME 29.2 SECONDS (25.4-37.6)
--- NOTE | 2018-11-04 04:59 | HPEPDOC ---
General Date of Admission November 04, 2018 at 03:20 Chief Complaint The patient is a 68-year-old male admitted with a reason for visit of ILEUS. Source: Patient, Family, RN/MD History of Present Illness Mr. Charlton is a 68 years old man with hx/o hernia repair in the past who presents to Er with c/o abdominal pain, distension, nausea and vomiting. Symptom are going on for three days, associated with decreasing amount of bowel movement. He is passing flatus. Denies fever, chills or use of narcotic. In the ER, pt was hemodynamically stable. He had an episode of vomiting. CT abd was reported as early small bowel obstruction and large colonic stool burden. Surgery was consulted from ED. Dr. Robins's impression: Ileus. An NG tube was placed and connected to LIS. Home Medications Scheduled Albuterol Sulf (Albuterol Sulfate) 2.5 Mg/3 Ml Vial.neb, 2.5 MG INH BID, (Reported) Aspirin (Aspirin EC) 81 Mg Tablet.dr, 81 MG PO DAILY, (Reported) Budesonide (Budesonide) 8.43 Ml [place].pump, 3 SPRAYS NA QHS, (Reported) Carboxymethylcellulose Sodium (Refresh Tears) 15 Ml Drops, 1 DROP OU QID, (Reported) Carboxymethylcellulose Sodium (Thera Tears) 1 Each Droper.gel, 1 DROP OU QHS, (Reported) Dulaglutide (Trulicity) 1.5 Mg/0.5 Ml Pen.injctr, 1.5 MG SC 1XWK, (Reported) MONDAYS Gabapentin (Gabapentin) 400 Mg Capsule, 1,200 MG PO QHS, (Reported) Insulin Aspart (Novolog Flexpen) 100 Unit/Ml Inj, 1 DOSE SC AC, (Reported) PER SLIDING SCALE LESS THAN 80 - 84 UNITS, 81 TO 150 - 88 UNITS, 151 TO 200 - 92 UNITS, 201 TO 250 - 96 UNITS, 251 TO 300 - 100 UNITS, 301 TO 350 - 104 UNITS, 351 TO 400 - 108 UNITS, 401 TO 450 - 112 UNITS, MORE THAN 450 - 116 UNITS Insulin Aspart (Novolog Flexpen) 100 Unit/1 Ml Insuln.pen, 1 DOSE SC QHS, (Reported) PER SLIDING SCALE LESS THAN 150 - 0 UNITS, 151 TO 200 - 26 UNITS, 201 TO 250 - 28 UNITS, 251 TO 300 - 30 UNITS, 301 TO 350 - 32 UNITS, 351 TO 400 - 34 UNITS, 401 TO 450 - 36 UNITS, MORE THAN 450 - 38 UNITS Insulin Degludec (Tresiba) 100 Unit/1 Ml Vial, 150 UNIT SC BID, (Reported) Losartan Potassium (Losartan Potassium) 50 Mg Tab, 50 MG PO BID, (Reported) Metformin HCl (Metformin HCl ER) 500 Mg Tab.er.24h, 1,000 MG PO BID, (Reported) Rosuvastatin Calcium (Rosuvastatin Calcium) 40 Mg Tablet, 40 MG PO QPM, (Re ported) TAKES AT DINNERTIME Simethicone (Simethicone) 80 Mg Tab.chew, 80 MG PO TID, (Reported) Tamsulosin HCl (Flomax) 0.4 Mg Capsule, 0.4 MG PO DAILY, (Reported) Tiotropium Br/Olodaterol HCl (Stiolto Respimat Inhal [place]) 4 Gm Mist.inhal, 2 PUFFS INH DAILY, (Reported) Trospium Chloride (Trospium Chloride) 20 Mg Tablet, 20 MG PO BID, (Reported) Scheduled PRN Albuterol Sulfate (Proair Hfa) 8.5 Gm Hfa.aer.ad, 2 PUFF INH QID PRN for S HORTNESS OF BREATH, (Reported) Docusate Sodium (Colace) 100 Mg Cap, 200 MG PO TID PRN for CONSTIPATION, (Reported) Allergies Coded Allergies: No Known Allergies (Unverified , 11/03/18) Past Medical History Medical History HTN, COPD, IDDM-2, CHD, HLD, Neuropathy, Morbid obesity Surgical History Cataract removal, hernia sx, Left knee sx Family History Significant Family History: No pertinent family hx Social History * Smoker: former Smoker Alcohol: Denies Drugs: denies A-FIB/CHADSVASC A-FIB History Current/History of A-Fib/PAF?: No Review of Systems Constitutional: Denies: Chills, Fever ENT: Denies: Head Aches Skin: Denies: Rash Pulmonary: Denies: Dyspnea, Cough Cardiovascular: Reports: Edema; Denies: Chest Pain Gastrointestinal: Reports: Nausea, Vomiting, Abdominal Pain, Constipation; Denies: Diarrhea Genitourinary: Denies: Dysuria Musculoskeletal: Denies: Neck Pain Neurological: Denies: Weakness Psych: Reports: Mood Normal Physical Examination General Exam: Positive: Alert, Cooperative, No Acute Distress Eye Exam: Positive: PERRLA ENT Exam: Positive: Atraumatic Neck Exam: Positive: Supple; Negative: JVD Chest Exam: Positive: Normal air movement Heart Exam: Positive: Rate Normal, Regular Rhythm Abdomen Exam: Positive: Normal bowel sounds, Other (distended, mild tenderness) Extremity Exam: Positive: Edema (chronic) Skin Exam: Negative: Rash Neuro Exam: Positive: Normal Speech, Strength at 5/5 X4 ext Psych Exam: Positive: Mental status NL, Mood NL Vital Signs Vital Signs Date Time Temp Pulse Resp B/P (MAP) Pulse Ox O2 Delivery O2 Flow Rate FiO2 11/04/18 04:00 96 Nasal Cannula 2.0 11/04/18 03:57 97.8 80 20 158/68 (98) Laboratory Data Labs 24H Laboratory Tests 2 11/03/18 20:40: Immature Granulocyte % (Auto) 0.4, White Blood Count 11.3H, Red Blood Count 4.48, Hemoglobin 13.1L, Hematocrit 41.3L, Mean Corpuscular Volume 92.2, Mean Corpuscular Hemoglobin 29.2, Mean Corpuscular Hemoglobin Concent 31.7L, Red Cell Distribution Width 14.2, Platelet Count 219, Neutrophils (%) (Auto) 66.1H, Lymphocytes (%) (Auto) 22.3L, Monocytes (%) (Auto) 8.8H, Eosinophils (%) (Auto) 2.0, Basophils (%) (Auto) 0.4, Neutrophils # (Auto) 7.5, Lymphocytes # (Auto) 2.5, Monocytes # (Auto) 1.0H, Eosinophils # (Auto) 0.2, Basophils # (Auto) 0.1, Nucleated Red Blood Cells % (auto) 0.0 11/03/18 20:46: POC Glucose (Misc Panel) 159H, POC Sodium (Misc Panel) 143, POC Potassium (Misc Panel) 4.4, POC Chloride (Misc Panel) 106, POC Total CO2 (Misc Panel) 26.0, POC Blood Urea Nitrogen (Misc Panel 20, POC Ionized Calcium (Misc Panel) 4.7, POC Creatinine (Misc Panel) 1.1, POC Hematocrit (Misc Panel) 39.0 11/03/18 23:06: Urine Color YELLOW, Urine Appearance CLEAR, Urine pH 5.0, Urine Specific [place] 1.016, Urine Protein NEGATIVE, Urine Glucose (UA) NEGATIVE, Urine Ketones NEGATIVE, Urine Blood NEGATIVE, Urine Nitrite NEGATIVE, Urine Bilirubin NEGATIVE, Urine Urobilinogen 0.2, Urine Leukocyte Esterase NEGATIVE, Urine WBC (Auto) 1, Urine RBC (Auto) 3, Urine Hyaline Casts (Auto) 0, Urine Bacteria (Auto) NEGATIVE, Urine Squamous Epithelial Cells 0, Urine Sperm (Auto) 11/04/18 03:48: Anion Gap 4L, Glomerular Filtration Rate 59.7, Blood Urea Nitrogen 20H, Creatinine 1.27, Sodium Level 142, Potassium Level 4.4, Chloride Level 109H, Carbon Dioxide Level 29, Calcium Level 8.7L, Phosphorus Level 3.4, Aspartate Amino Transf (AST/SGOT) 23, Alanine Aminotransferase (ALT/SGPT) 31, Alkaline Phosphatase 82, Total Bilirubin 0.9, Total Protein 7.3, Albumin 3.5, Magnesium Level 2.2, Albumin/Globulin Ratio 0.92L CBC/BMP Laboratory Tests 11/03/18 20:40 Red Blood Count 4.48, Mean Corpuscular Volume 92.2, Mean Corpuscular Hemoglobin 29.2, Mean Corpuscular Hemoglobin Concent 31.7 L, Red Cell Distribution Width 14.2, Neutrophils (%) (Auto) 66.1 H, Lymphocytes (%) (Auto) 22.3 L, Monocytes (%) (Auto) 8.8 H, Eosinophils (%) (Auto) 2.0, Basophils (%) (Auto) 0.4, Neutrophils # (Auto) 7.5, Lymphocytes # (Auto) 2.5, Monocytes # (Auto) 1.0 H, Eosinophils # (Auto) 0.2, Basophils # (Auto) 0.1 11/04/18 03:48 Calcium Level 8.7 L, Phosphorus Level 3.4, Aspartate Amino Transf (AST/SGOT) 23, Alanine Aminotransferase (ALT/SGPT) 31, Alkaline Phosphatase 82, Total Bilirubin 0.9, Total Protein 7.3, Albumin 3.5 Assessment/Plan 1. Ileus, ?partial SBO; Constipation with significant Colonic Stool [place] Simple vs mechanical etiology. - NGT with LIS - Surgery consult, f/u - Gentle IV hydration; monitor electrolytes - Trial with Dulcolax SP - Hold home meds while pt is NPO - KILEY Plan / VTE VTE Prophylaxis Ordered?: Yes Plan Anticipated Discharge: Home TEZ AU MD November 04, 2018 04:59
[2018-11-04] MEDS: HumaLOG INSULIN (NovoLOG) PER UNIT SC SCH ×4 (05:54→23:52)
--- NOTE | 2018-11-04 08:28 | REP ---
Portable chest: Single view. History: For NG tube placement assessment. Comparison chest x-ray July 29, 2018. Findings: Image quality is adversely affected by patient body habitus. The exam is processed to optimize visualization of the NG tube in the mediastinum. As a result, the lung paulino are over exposed and essentially uninterpretable. The heart appears prominent. An NG tube can be followed through the mediastinum although I cannot see it in the stomach its exact termination is obscured. It may be in the region of the gastroesophageal junction. An abdominal radiograph could be considered. Impression: NG tube can be followed to the distal esophagus but not confirmed beyond this. There are severe technical limitations to this study as above. Consider abdominal radiograph. Electronically Signed by Luis Alberto Callejas MD 11/04/2018 03:36 P
[2018-11-04 08:50] VITALS: BP 178/72
--- NOTE | 2018-11-04 08:58 | REP ---
KUB: Four views presented. History: Constipation. Comparison study: January 11, 2016. Findings: Four supine films of the abdomen were obtained to cover the abdominal cavity radiographically. There is gaseous distension of multiple loops of small bowel and air and stool is seen in the large intestine. There may be some distension of the sigmoid colon. I do not see gas in the rectum. There is no visible free air on this supine radiographic series. Minimal gaseous distension of the stomach is observed. Impression: Gaseous distension of multiple loops of small bowel and colon likely ileus. Electronically Signed by Luis Alberto Callejas MD 11/04/2018 03:37 P
[2018-11-04] MEDS: HEPARIN SOD (PORCINE) 5000 UNITS/ML VIAL SC SCH ×2 (08:59→21:57)
[2018-11-04] MEDS ORDERED: FLEET ENEMA PR ONE (09:15)
[2018-11-04 09:37] LABS: HEMATOCRIT 40.8 % (42.0-52.0); HEMOGLOBIN 12.9 g/dl (13.5-17.5); MEAN CORPUSCULAR HEMOGLOBIN 28.9 pg (27.0-33.0); MEAN CORPUSCULAR HGB CONC 31.6 g/dl (32.0-36.5); MEAN CORPUSCULAR VOLUME 91.5 fl (80.0-96.0); PLATELET COUNT, AUTOMATED 212 10^3/uL (150-450); RED BLOOD COUNT 4.46 10^6/uL (4.30-6.10); WHITE BLOOD COUNT 11.8 10^3/uL (4.0-10.0)
[2018-11-04 10:15] LABS: ALBUMIN 3.6 GM/DL (3.2-5.2); ALT/SGPT 34 U/L (12-78); BILIRUBIN,TOTAL 0.9 MG/DL (0.2-1.0); BLOOD UREA NITROGEN 19 MG/DL (7-18); CALCIUM LEVEL 8.5 MG/DL (8.8-10.2); CARBON DIOXIDE LEVEL 28 MEQ/L (21-32); CHLORIDE LEVEL 110 MEQ/L (98-107); CREATININE FOR GFR 1.17 MG/DL (0.70-1.30); GLOMERULAR FILTRATION RATE > 60.0 (>42); GLUCOSE, FASTING 117 MG/DL (70-100); POTASSIUM SERUM 4.2 MEQ/L (3.5-5.1); SODIUM LEVEL 142 MEQ/L (136-145); TOTAL PROTEIN 6.7 GM/DL (6.4-8.2)
--- NOTE | 2018-11-04 11:21 | CR ---
DATE OF CONSULTATION: 11/04/2018 The patient was seen very early this morning in the emergency room for question of bowel obstruction with abdominal pain and discomfort. Essentially, has had a several-day history of abdominal pain worse over the last 12 hours prior to admission. Also has had some minimal stool output ongoing for the last 3 days but it has been very little. He intermittently take some significant laxatives for his constipation issues. His x-ray returned with evidence of question small bowel obstruction with great deal of stool/constipation with question of early small-bowel obstruction/ileus/partial small bowel obstruction and I was asked to see the patient at that time. He had the nasogastric (NG) tube placed and when I discussed this with him, he was sitting up beside the bed with the NG tube in place stating that he has had some flatus and is concerned that he may have had some mild incontinence of a little bit of stool. But states that his abdominal pain seems to be a little bit better since the NG tube was placed. This was early this morning. When I initially saw him in a re-evaluation, a few hours later reveals that his abdominal distension is hard to assess given his morbid obesity, but he states that he has had some additional flatus and questionable bowel movement. He has some NG tube output that has been bilious and has not had any followup labs or x-rays as of yet. PAST MEDICAL HISTORY: His past medical history is significant for: History of morbid obesity (super obese). History of chronic obstructive pulmonary disease (COPD) (O2 dependent). History of insulin-dependent diabetes mellitus. History of congenital heart disease (CHD) HLD. Neuropathy. Hypertension. Hernia surgery. Left knee surgery. MEDICATIONS INCLUDE: - albuterol - aspirin - budesonide - Trulicity - gabapentin - insulin - Tresiba - losartan - metformin - rosuvastatin - simethicone - Flomax - inhalers - trospium chloride PHYSICAL EXAMINATION: The patient is a morbidly obese individual. He does not appear to be any significant respiratory distress at this point but he says he cannot lie flat. He needs to be sitting in a sitting position. Otherwise, anteriorly and posteriorly, his lungs are relatively clear. I am not hearing any wheezes or rhonchi. Heart is regular. Abdomen is morbidly obese. Quite difficult to assess. It is hard to tell if this is distended or not for him. He says it is slightly more distended initially when I saw him and now seems to be a little bit better this morning. IMPRESSION AND PLAN: Ileus versus question partial small bowel obstruction/constipation with, etc,, with colonic partial obstruction with this stool burden. At this point, I do feel, that given his abdominal distension and his discomfort, NG tube decompression is warranted. Will make him nothing by mouth at this point. IV fluids. Will get some followup labs and x-rays and will see what this shows. It is hard to tell once again as I stated whether he is resolving on his x-rays, given his clinical/physical exam and we may have to rely on the studies more so than the patient's exam. SHILO
--- NOTE | 2018-11-04 12:19 | REP ---
REASON: Recheck ileus. The accompanying frontal view of the chest has been compared to an examination of limited quality obtained earlier today and the latest prior diagnostic quality exam of 07/29/2018. The accompanying frontal view of the chest shows chronic fibrotic changes and cardiomegaly status quo. There is chronic right pleural thickening status quo. The osseous structures are unchanged. A nasogastric tube is seen coursing the esophagus. The tip of the tube is beneath the diaphragmatic surface of the left lung presumably within the stomach. The proximal port appears close to the GE junction. Multiple dilated gas filled small bowel loops are seen in the abdomen. There is on evidence of free intraperitoneal air. There is gas in the pelvis. Radiographic contrast opacifies the urinary bladder from previous CT scan of 11/03/2018. The osseous structures are within normal limits for the patient's age. IMPRESSION: There is evidence of an ileus versus early SBO. This needs to be correlated clinically. Other findings as described above. Electronically Signed by Man Mayo DO 11/04/2018 03:22 P
[2018-11-04] MEDS: COMBIVENT RESPIMAT 100-20MCG INHALER 4GM INH PRN ×2 (13:42→21:06)
[2018-11-04 14:00] VITALS: BP 183/84
[2018-11-04] MEDS ORDERED: HYDROMORPHONE HCL 0.5 MG/ 0.5 ML SYRINGE (J1170 PER 1) IV PRN ×2 (15:00)
--- NOTE | 2018-11-04 15:14 | IPNPDOC ---
Date Seen The patient was seen on 11/04/18. Progress Note SUBJECTIVE: Patient uncomfortable due to ileus. Patient currently has an NG tube in place. Patient also has nasal cannula which she is placed on the side as he states that it causes his throat to cool. Patient states that he uses oxygen at home and utilize CPAP at night. He does not know how much oxygen he uses throughout the day. He used to be a former smoker. Uses inhalers at home. We'll resume his home regimen as close to as possible but avoid CPAP tonight as patient admitted for ileus/early SBO with NG tube. OBJECTIVE PHYSICAL EXAMINATION: VITAL SIGNS: Please see below GENERAL APPEARANCE: Sitting on bed, NGT HEENT: Normocephalic, PERRLA, Mucous moist, CARDIOVASCULAR: S1,S2, pulse present, regularly, regular LUNGS: Equal air entry b/l, no wheezes or crackle ABDOMEN: Soft, no guarding, morbid obesity, generalized tenderness EXTREMITIES: B/L edema, capillary refill present SKIN: Warm, No fever NEUROLOGICAL: Cranial nerves grossly intact PSYCHIATRIC: Normal mood and affect for current situation LABORATORY DATA, IMAGING STUDIES, MICROBIOLOGY: Please see below. Mr. Charlton is a 68 years old man with hx/o hernia repair in the past who presents to Er with c/o abdominal pain, distension, nausea and vomiting. Symptom are going on for three days, associated with decreasing amount of bowel movement. He is passing flatus. Denies fever, chills or use of narcotic. In the ER, pt was hemodynamically stable. He had an episode of vomiting. CT abd was reported as early small bowel obstruction and large colonic stool burden. Surgery was consulted from ED. Dr. Robins's impression: Ileus. An NG tube was placed and connected to LIS. ASSESSMENT AND PLAN: 68 years old man with hx/o hernia repair, HTN, COPD, IDDM-2, CHD, HLD, Neuropathy, Morbid obesity presents to Er with c/o abdominal pain, distension, nausea and vomiting. CT abd showed early small bowel obstruction and large colonic stool burden. Surgery was consulted from ED. Dr. Robins's impression: Ileus. Ileus, ?partial SBO; Constipation with significant Colonic Stool [place] - Simple vs mechanical etiology. Morbid obesity - hx/o hernia repair -abd xray:Gaseous distension of multiple loops of small bowel and colon likely ileus. -CT abdomen:Moderate fecal loading of the colon. Mildly dilated proximal and mid small bowel loops measuring up to 4 cm with decompressed distal small bowel loops. Transition point is seen in the right lower quadrant (series 201 image 90, series 202 image 47). Findings all concerning for early small bowel obstruction. -CXR:NG tube can be followed to the distal esophagus but not confirmed beyond this. There are severe technical limitations to this study as above. Consider ab dominal radiograph. -Abd rxay:There is evidence of an ileus versus early SBO. - NGT with LIS - Surgery consult, f/u - Gentle IV hydration; monitor electrolytes - Trial with Dulcolax SP - NPO - Pain management & protonix iv HTN -resumed losartan -pain control PRN K[place] & COPD, uses oxygen nc (liter unknown by pt), CPAP -oxygen -hold CPAP for now IDDM-2 -FS monitoring -insulin prn -home med held CHD -resume med as tolerated HLD -resume med as tolerated Neuropathy -resume home med as tolerated DVT prop as per hep sc VS, I&O, 24H, Fishbone Vital Signs/I&O Vital Signs Date Time Temp Pulse Resp B/P (MAP) Pulse Ox O2 Delivery O2 Flow Rate FiO2 11/04/18 08:50 97.7 81 19 178/72 (107) 95 11/04/18 08:29 Nasal Cannula 2.0 Laboratory Data 24H LABS Laboratory Tests 2 11/03/18 20:40: Immature Granulocyte % (Auto) 0.4, White Blood Count 11.3H, Red Blood Count 4.48, Hemoglobin 13.1L, Hematocrit 41.3L, Mean Corpuscular Volume 92.2, Mean Corpuscular Hemoglobin 29.2, Mean Corpuscular Hemoglobin Concent 31.7L, Red Cell Distribution Width 14.2, Platelet Count 219, Neutrophils (%) (Auto) 66.1H, Lymphocytes (%) (Auto) 22.3L, Monocytes (%) (Auto) 8.8H, Eosinophils (%) (Auto) 2.0, Basophils (%) (Auto) 0.4, Neutrophils # (Auto) 7.5, Lymphocytes # (Auto) 2.5, Monocytes # (Auto) 1.0H, Eosinophils # (Auto) 0.2, Basophils # (Auto) 0.1, Nucleated Red Blood Cells % (auto) 0.0 11/03/18 20:46: POC Glucose (Misc Panel) 159H, POC Sodium (Misc Panel) 143, POC Potassium (Misc Panel) 4.4, POC Chloride (Misc Panel) 106, POC Total CO2 (Misc Panel) 26.0, POC Blood Urea Nitrogen (Misc Panel 20, POC Ionized Calcium (Misc Panel) 4.7, POC Creatinine (Misc Panel) 1.1, POC Hematocrit (Misc Panel) 39.0 11/03/18 23:06: Urine Color YELLOW, Urine Appearance CLEAR, Urine pH 5.0, Urine Specific [place] 1.016, Urine Protein NEGATIVE, Urine Glucose (UA) NEGATIVE, Urine Ketones NEGATIVE, Urine Blood NEGATIVE, Urine Nitrite NEGATIVE, Urine Bilirubin NE GATIVE, Urine Urobilinogen 0.2, Urine Leukocyte Esterase NEGATIVE, Urine WBC (Auto) 1, Urine RBC (Auto) 3, Urine Hyaline Casts (Auto) 0, Urine Bacteria (Auto) NEGATIVE, Urine Squamous Epithelial Cells 0, Urine Sperm (Auto) 11/04/18 03:48: Prothrombin Time 13.7, Prothromb Time International Ratio 1.04, Activated Partial Thromboplast Time 29.2, Anion Gap 4L, Glomerular Filtration Rate 59.7, Blood Urea Nitrogen 20H, Creatinine 1.27, Sodium Level 142, Potassium Level 4.4, Chloride Level 109H, Carbon Dioxide Level 29, Calcium Level 8.7L, Phosphorus Level 3.4, Aspartate Amino Transf (AST/SGOT) 23, Alanine Aminotransferase (ALT/SGPT) 31, Alkaline Phosphatase 82, Total Bilirubin 0.9, Total Protein 7.3, Albumin 3.5, Magnesium Level 2.2, Albumin/Globulin Ratio 0.92L 11/04/18 05:45: Bedside Glucose (Misc Panel) 121H 11/04/18 09:21: Nucleated Red Blood Cells % (auto) 0.0, Anion Gap 4L, Glomerular Filtration Rate > 60.0, Blood Urea Nitrogen 19H, Creatinine 1.17, Sodium Level 142, Potassium Level 4.2, Chloride Level 110H, Carbon Dioxide Level 28, Calcium Level 8.5L, Aspartate Amino Transf (AST/SGOT) 26, Alanine Aminotransferase (ALT/SGPT) 34, Alkaline Phosphatase 81, Total Bilirubin 0.9, Total Protein 6.7, Albumin 3.6, Albumin/Globulin Ratio 1.16 CBC/BMP Laboratory Tests 11/03/18 20:40 Red Blood Count 4.48, Mean Corpuscular Volume 92.2, Mean Corpuscular Hemoglobin 29.2, Mean Corpuscular Hemoglobin Concent 31.7 L, Red Cell Distribution Width 14.2, Neutrophils (%) (Auto) 66.1 H, Lymphocytes (%) (Auto) 22.3 L, Monocytes (%) (Auto) 8.8 H, Eosinophils (%) (Auto) 2.0, Basophils (%) (Auto) 0.4, Neutrophils # (Auto) 7.5, Lymphocytes # (Auto) 2.5, Monocytes # (Auto) 1.0 H, Eosinophils # (Auto) 0.2, Basophils # (Auto) 0.1 11/04/18 03:48 Calcium Level 8.7 L, Phosphorus Level 3.4, Aspartate Amino Transf (AST/SGOT) 23, Alanine Aminotransferase (ALT/SGPT) 31, Alkaline Phosphatase 82, Total Bilirubin 0.9, Total Protein 7.3, Albumin 3.5 11/04/18 09:21 Red Blood Count 4.46, Mean Corpuscular Volume 91.5, Mean Corpuscular Hemoglobin 28.9, Mean Corpuscular Hemoglobin Concent 31.6 L, Red Cell Distribution Width 14.2, Calcium Level 8.5 L, Aspartate Amino Transf (AST/SGOT) 26, Alanine Aminotransferase (ALT/SGPT) 34, Alkaline Phosphatase 81, Total Bilirubin 0.9, Total Protein 6.7, Albumin 3.6 PATRICIO ATWOOD MD November 04, 2018 15:14
[2018-11-04] MEDS ORDERED: KETOROLAC 30 MG/ML VIAL (J1885) IV PRN (15:15)
[2018-11-04] MEDS: PANTOPRAZOLE 40MG INJ (PROTONIX) (C9113) IV SCH (16:00)
[2018-11-04] MEDS: LOSARTAN 50 MG TAB PO SCH (17:23)
[2018-11-04 18:53] VITALS: BP 164/82
[2018-11-04] MEDS ORDERED: RAMELTEON 8 MG TAB (ROZEREM) PO ONE (21:00)
[2018-11-04 22:00] VITALS: BP 148/69
[2018-11-05] MEDS: D5W/LR 1,000 ML IV SCH (05:47)
[2018-11-05 06:00] VITALS: BP 148/69
[2018-11-05 06:09] LABS: HEMATOCRIT 36.8 % (42.0-52.0); HEMOGLOBIN 11.6 g/dl (13.5-17.5); MEAN CORPUSCULAR HEMOGLOBIN 28.6 pg (27.0-33.0); MEAN CORPUSCULAR HGB CONC 31.5 g/dl (32.0-36.5); MEAN CORPUSCULAR VOLUME 90.6 fl (80.0-96.0); PLATELET COUNT, AUTOMATED 198 10^3/uL (150-450); RED BLOOD COUNT 4.06 10^6/uL (4.30-6.10); WHITE BLOOD COUNT 10.4 10^3/uL (4.0-10.0)
[2018-11-05] MEDS: HumaLOG INSULIN (NovoLOG) PER UNIT SC SCH ×3 (06:23→18:26)
[2018-11-05 06:31] LABS: BLOOD UREA NITROGEN 20 MG/DL (7-18); CALCIUM LEVEL 8.1 MG/DL (8.8-10.2); CARBON DIOXIDE LEVEL 27 MEQ/L (21-32); CHLORIDE LEVEL 109 MEQ/L (98-107); CREATININE FOR GFR 1.07 MG/DL (0.70-1.30); GLOMERULAR FILTRATION RATE > 60.0 (>42); GLUCOSE, FASTING 90 MG/DL (70-100); POTASSIUM SERUM 3.6 MEQ/L (3.5-5.1); SODIUM LEVEL 142 MEQ/L (136-145)
[2018-11-05] MEDS: COMBIVENT RESPIMAT 100-20MCG INHALER 4GM INH PRN (08:05)
[2018-11-05 09:29] VITALS: BP 148/69
[2018-11-05] MEDS: LOSARTAN 50 MG TAB PO SCH (09:29)
[2018-11-05] MEDS: HEPARIN SOD (PORCINE) 5000 UNITS/ML VIAL SC SCH (09:30)
[2018-11-05 14:00] VITALS: BP 156/70
--- NOTE | 2018-11-05 15:49 | DS.PDOC ---
Discharge Summary General Date of Admission November 04, 2018 at 03:20 Date of Discharge 11/05/18 Discharge Summary PROCEDURES PERFORMED DURING STAY: [None]. ADMITTING DIAGNOSES: Ileus, ?partial SBO; Constipation with significant Colonic Stool [place] HTN KORY & COPD, chronic hypoxic respiratory failure with COPD requiring continuous home O2 IDDM-2 CHD HLD Neuropathy DISCHARGE DIAGNOSES: Ileus, ?partial SBO; Constipation with significant Colonic Stool [place] HTN KORY & COPD, chronic hypoxic respiratory failure with COPD requiring continuous home O2 IDDM-2 CHD HLD Neuropathy COMPLICATIONS/CHIEF COMPLAINT: ILEUS. HISTORY OF PRESENT ILLNESS: [Mr. Charlton is a 68 years old man with hx/o hernia repair in the past who presents to Er with c/o abdominal pain, distension, nausea and vomiting. Symptom are going on for three days, associated with decreasing amount of bowel movement. He is passing flatus. Denies fever, chills or use of narcotic. In the ER, pt was hemodynamically stable. He had an episode of vomiting. CT abd was reported as early small bowel obstruction and large colonic stool burden. Surgery was consulted from ED. Dr. Robins's impression: Ileus. An NG tube was placed and connected to LIS.]. HOSPITAL COURSE: [ 68 years old man with hx/o hernia repair, HTN, COPD, IDDM-2, CHD, HLD, Ne uropathy, Morbid obesity presents to Er with c/o abdominal pain, distension, nausea and vomiting. CT abd showed early small bowel obstruction and large colonic stool burden. Surgery was consulted from ED. Dr. Robins's impression: Ileus. Patient was treated with NG tube and management as below. Patient improved and had bowel movements. NG tube removed. Patient to return home today. Patient states that he feels more comfortable at home due to his body habitus. Patient to be discharged home today if okay by surgery. Patient threatening to sign out AMA if not discharged. Please follow with PCP and Dr. Robins as outpatient within [address] Robins, patient okay to d/c today. Spoke to patient's , who is main caregiver, she is able to care for the patient at home with mobile devices and feels comfortable taking him home without further assistance. Ileus, ?partial SBO; Constipation with significant Colonic Stool [place] - Simple vs mechanical etiology. Morbid obesity - hx/o hernia repair -abd xray:Gaseous distension of multiple loops of small bowel and colon likely ileus. -CT abdomen:Moderate fecal loading of the colon. Mildly dilated proximal and mid small bowel loops measuring up to 4 cm with decompressed distal small bowel loops. Transition point is seen in the right lower quadrant (series 201 image 90, series 202 image 47). Findings all concerning for early small bowel obstruction. -CXR:NG tube can be followed to the distal esophagus but not confirmed beyond this. There are severe technical limitations to this study as above. Consider abdominal radiograph. -Abd rxay:There is evidence of an ileus versus early SBO. - Status post NGT with LIS - Surgery consult, f/u - Status post Gentle IV hydration; monitor electrolytes - Status post Trial with Dulcolax SP an enema - Status post NPO - Status post Pain management & protonix iv HTN -resumed losartan -Status post pain control PRN KORY & COPD, chronic hypoxic respiratory failure with COPD requiring continuous home O2, CPAP -oxygen -hold CPAP for now but resume at home. IDDM-2 -Status post FS monitoring -Status post insulin prn -home med held CHD -resume med as tolerated HLD -resume med as tolerated Neuropathy -resume home med as tolerated ]. DISCHARGE MEDICATIONS: Please see below. ALLERGIES: Please see below. PHYSICAL EXAMINATION ON DISCHARGE: VITAL SIGNS: Please see below GENERAL APPEARANCE: Sitting in chair HEENT: Normocephalic, PERRLA, Mucous moist, CARDIOVASCULAR: S1,S2, pulse present, regularly, regular LUNGS: Equal air entry b/l, no wheezes or crackle ABDOMEN: Soft, no guarding, morbid obesity, generalized tenderness EXTREMITIES: B/L edema, capillary refill present SKIN: Warm, No fever NEUROLOGICAL: Cranial nerves grossly intact PSYCHIATRIC: Normal mood and affect for current situation LABORATORY DATA: Please see below. IMAGING: [Ct abdome:Moderate fecal loading of the colon. Mildly dilated proximal and mid small bowel loops measuring up to 4 cm with decompressed distal small bowel loops. Transition point is seen in the right lower quadrant (series 201 image 90, series 202 image 47). Findings all concerning for early small bowel obstruction. cxr:NG tube can be followed to the distal esophagus but not confirmed beyond this. There are severe technical limitations to this study as above. Consider abdominal radiograph. Abdomen xray:There is evidence of an ileus versus early SBO. This needs to be correlated clinically. Other findings as described above. ] PROGNOSIS: [Improved] ACTIVITY: [As tolerated]. DIET: [Resume home diet] DISPOSITION:Home DISCHARGE CONDITION: [Stable]. TIME SPENT ON DISCHARGE: Greater than [40] minutes. Vital Signs/I&Os Vital Signs Date Time Temp Pulse Resp B/P (MAP) Pulse Ox O2 Delivery O2 Flow Rate FiO2 11/05/18 14:00 97.7 71 20 97 11/05/18 09:29 148/69 11/05/18 08:00 2.0 11/04/18 08:29 Nasal Cannula I&O- Last 24 Hours up to 6 AM 11/05/18 06:00 Intake Total 1575 ml Output Total 900 ml Balance 675 ml Laboratory Data Labs 24H Laboratory Tests 2 11/04/18 16:50: Bedside Glucose (Misc Panel) 96 11/05/18 05:11: Nucleated Red Blood Cells % (auto) 0.0, Anion Gap 6L, Glomerular Filtration Rate > 60.0, Blood Urea Nitrogen 20H, Creatinine 1.07, Sodium Level 142, Potassium Level 3.6, Chloride Level 109H, Carbon Dioxide Level 27, Calcium Level 8.1L CBC/BMP Laboratory Tests 11/05/18 05:11 Red Blood Count 4.06 L, Mean Corpuscular Volume 90.6, Mean Corpuscular Hemoglobin 28.6, Mean Corpuscular Hemoglobin Concent 31.5 L, Red Cell Distribution Width 14.3, Calcium Level 8.1 L FSBS Laboratory Tests Test 11/04/18 16:50 Range/Units Bedside Glucose (Misc Panel) 96 83-110 MG/DL Discharge Medications Scheduled Albuterol Sulf (Albuterol Sulfate) 2.5 Mg/3 Ml Vial.neb, 2.5 MG INH BID, (Reported) Aspirin (Aspirin EC) 81 Mg Tablet.dr, 81 MG PO DAILY, (Reported) Budesonide (Budesonide) 8.43 Ml [place].pump, 3 SPRAYS NA QHS, (Reported) Carboxymethylcellulose Sodium (Refresh Tears) 15 Ml Drops, 1 DROP OU QID, (Reported) Carboxymethylcellulose Sodium (Thera Tears) 1 Each Droper.gel, 1 DROP OU QHS, (Reported) Dulaglutide (Trulicity) 1.5 Mg/0.5 Ml Pen.injctr, 1.5 MG SC 1XWK, (Reported) MONDAYS Gabapentin (Gabapentin) 400 Mg Capsule, 1,200 MG PO QHS, (Reported) Insulin Aspart (Novolog Flexpen) 100 Unit/Ml Inj, 1 DOSE SC AC, (Reported) PER SLIDING SCALE LESS THAN 80 - 84 UNITS, 81 TO 150 - 88 UNITS, 151 TO 200 - 92 UNITS, 201 TO 250 - 96 UNITS, 251 TO 300 - 100 UNITS, 301 TO 350 - 104 UNITS, 351 TO 400 - 108 UNITS, 401 TO 450 - 112 UNITS, MORE THAN 450 - 116 UNITS Insulin Aspart (Novolog Flexpen) 100 Unit/1 Ml Insuln.pen, 1 DOSE SC QHS, (Reported) PER SLIDING SCALE LESS THAN 150 - 0 UNITS, 151 TO 200 - 26 UNITS, 201 TO 250 - 28 UNITS, 251 TO 300 - 30 UNITS, 301 TO 350 - 32 UNITS, 351 TO 400 - 34 UNITS, 401 TO 450 - 36 UNITS, MORE THAN 450 - 38 UNITS Insulin Degludec (Tresiba) 100 Unit/1 Ml Vial, 150 UNIT SC BID, (Reported) Losartan Potassium (Losartan Potassium) 50 Mg Tab, 50 MG PO BID, (Reported) Metformin HCl (Metformin HCl ER) 500 Mg Tab.er.24h, 1,000 MG PO BID, (Reported) Rosuvastatin Calcium (Rosuvastatin Calcium) 40 Mg Tablet, 40 MG PO QPM, (Reported) TAKES AT DINNERTIME Simethicone (Simethicone) 80 Mg Tab.chew, 80 MG PO TID, (Reported) Tamsulosin HCl (Flomax) 0.4 Mg Capsule, 0.4 MG PO DAILY, (Reported) Tiotropium Br/Olodaterol HCl (Stiolto Respimat Inhal [place]) 4 Gm Mist.inhal, 2 PUFFS INH DAILY, (Reported) Trospium Chloride (Trospium Chloride) 20 Mg Tablet, 20 MG PO BID, (Reported) Scheduled PRN Albuterol Sulfate (Proair Hfa) 8.5 Gm Hfa.aer.ad, 2 PUFF INH QID PRN for SHORTNESS OF BREATH, (Reported) Docusate Sodium (Colace) 100 Mg Cap, 200 MG PO TID PRN for CONSTIPATION, (Reported) Allergies Coded Allergies: No Known Allergies (Unverified , 11/03/18) PATRICIO ATWOOD MD November 05, 2018 15:49
[2018-11-05] MEDS: PANTOPRAZOLE 40MG INJ (PROTONIX) (C9113) IV SCH (18:26)
== END 2018-11-05 19:40 | disposition home or self-care (01) | DRG 389 ==
LOC: M ED 18:13 → M ED INP 11-04 03:20 → M MSPAV 11-04 08:45
PROVIDERS: ADMIT Internal Medicine; ATTEND Internal Medicine
DX: K56.7 Ileus, unspecified (principal); Z68.43 Body mass index [BMI] 50.0-59.9, adult; J96.11 Chronic respiratory failure with hypoxia; I10 Essential (primary) hypertension; J44.9 Chronic obstructive pulmonary disease, unspecified; E66.01 Morbid (severe) obesity due to excess calories; K56.600 Partial intestinal obstruction, unspecified as to cause; K59.00 Constipation, unspecified; G47.33 Obstructive sleep apnea (adult) (pediatric); E11.40 Type 2 diabetes mellitus with diabetic neuropathy, unspecified; Z79.4 Long term (current) use of insulin; Z79.899 Other long term (current) drug therapy; Z88.6 Allergy status to analgesic agent; Z99.81 Dependence on supplemental oxygen

== ENCOUNTER → 2019-11-10 | Outpatient (CLI) | payer MEDICARE, OTHER, BC ==
[~2019-11-10] MED LIST changes: +ASPI-161 PO; +BUDE32SU6; +FLOM0.4C39 PO; +METF-838 PO; +PROAAER10 INH; +REFR0.5D8 OU; +ROSU40TA4 PO; +SIME80TA PO; +STIO1AER INH; +THER1GEL OU; +TRES100I SC; +TROS20TA3 PO; +TRUL0.5I SC
== END ==
LOC: M LABSMTC 11:54
PROVIDERS: ATTEND Family Medicine
DX: Z11.59 Encounter for screening for other viral diseases (principal); Z20.828 Contact with and (suspected) exposure to other viral communicable diseases
CPT/HCPCS: C9803; U0003

== ENCOUNTER → 2024-08-05 | Outpatient (CLI) | payer OTHER ==
[~2024-08-05] MED LIST changes: +ALBU2.5V10 INH; -ALBU83IN INH; -ASPI-161 PO; +ASPI-615 PO; +CARB1DRO13 OU; -CEFD1CAP8 PO; +CEFD1CAP9 PO; +DOXY-441 PO; -DOXY100C37 PO; +GABA-284 PO; -GABA-845 PO; +LOSA50TA28 PO; -LOSA50TA88 PO; -ROSU40TA4 PO; +ROSU40TA81 PO; +SIME80CH5 PO; -SIME80TA PO; -THER1GEL OU
== END ==
LOC: M RAD 10:09
PROVIDERS: ATTEND Nurse Practitioner Family
DX: N40.1 Benign prostatic hyperplasia with lower urinary tract symptoms (principal)